=== PATIENT | female | born 1980 | race Caucasian/White ===

== ENCOUNTER 2025-01-06 13:49 | Emergency (ER) | payer OTHER, SELFPAY ==
--- OUTSIDE RECORDS SUMMARY | 2025-01-06 13:51 | XMS_ITS | Encounter Summary ---
Author Organization [facility] Address [address] [place] [address] Phone Care Team Providers Care Oven Dauber Name Role Phone Emery Lucia MD Primary Care Provider + Philomena Howard Primary Care Provider + Sherlyn Siddiqui RN Unavailable Unavailab Stephanie Feliciano NP Primary Care Provider [phone] Lashawn Moore MD Unavailable [phone] Encounter Details Date Type Department Care Team (Late st Contact Info) Description 05/18/2015 Orders Only [facility] CLINCONV Provider, MD Jose [address] [place] [address] Social History Tobacco Use Types Packs/Day Years Used Date Smoking Tobacco: Former Cigarettes Q uit: 05/03/2013 Alcohol Use Standard Drinks/Week Comments No 0 (1 standard drink = 0.6 oz pur e alcohol) Comments Unknown Sex and Gender Information Value Date Recorded Sex Assigned at Not on file 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 us Historical Provider NURSING COMMUNICATION Fin al Result documented in this encounter Visit Diagnoses Not on filedocumented in this encounter Additional Health Concerns Infection Onset Date Last Indicated Resolved Time COVID: Suspected 08/27/2023 08/27/2023 08/27/2023 3:40 AM CDT documented as of this encounter Care Teams Oven Dauber Relationship Specialty Start Date End Date Emery Lucia MD [address] [place] [address] PCP - General 07/03/14 05/17/17 Philomena Howard PA [address] [place] [address] PCP - General 05/18/17 09/02/20 Stephanie Brooks NP [address] [place] [address] PCP - General 09/03/20 Sherlyn Siddiqui, DAVID Registered Nurse Pain Management 05/18/17 Lashawn Moore MD [address] [place], [place] [address] Referring Physician General Surgery 03/05/22 documented as of this encounter
--- OUTSIDE RECORDS SUMMARY | 2025-01-06 13:51 | XMS_ITS | Clinical Summary ---
Author Organization [facility] Address [address] [place] [address] Care Team Providers Care Contract Administrative Assistant Name Role Phone Sherlyn Siddiqui RN Unavailable Unavailab Stephanie Feliciano NP Primary Care Provider + [phone] Lashawn Moore MD Unavailable [phone] Allergies Active Allergy Reactions Criticality Noted Date Comments Naproxen Vomiting Medium Pregabalin Hallucinations Medium 08/11/2017 Bad dreams Medications metoprolol (LOPRESSOR) 50 mg tablet Take 1 tablet (50 mg total) by mouth 2 (two) times a day 8 Active omeprazole (PriLOSEC) 20 mg capsule Take 2 capsules (40 mg total) by mouth every morning 8 Active cetirizine (ZyrTEC) 10 mg tablet Take 1 tablet (10 mg total) by mouth every morning Active psyllium (METAMUCIL) powder Take 2 packets by mouth 2 (two) times a day as needed Active cyclobenzaprine (FLEXERIL) 10 mg tablet Take 1 tablet (10 mg total) by mouth nightly as needed for muscle spasms 12 tablet 9 Active albuterol 2.5 mg /3 mL (0.083 %) nebulizer solution Take by nebulization every 4 (four) hours as needed for shortness of breath Active Lactobac no.41/Bifidobact no.7 (PROBIOTIC-10 ORAL) Take 1 tablet by mouth every morning Active multivitamin capsule Take 1 capsule by mouth 2 (two) times a day Active potassium chloride ER (KLOR-CON) 10 mEq CR tablet Take 1 tablet/capsule (10 mEq total) by mouth 2 (two) times a day Active albuterol HFA (PROVENTIL HFA,VENTOLIN HFA,PROAIR HFA) 90 mcg/actuation inhaler Inhale 2 puffs every 6 (six) hours as needed for wheezing or shortness of breath Active CALCIUM CITRATE ORAL Take 600 mg by mouth 2 (two) times a day Active lactulose 0.67 gram/mL solution as needed (constipation) 3 Active ferrous sulfate 325 mg (65 mg of elemental iron) tablet Take 1 tablet (325 mg total) by mouth daily with breakfast 30 tablet 11 5 026 Active acetaminophen (TYLENOL) 500 mg tabletIndication s:Pain Take 2 tablets (1,000 mg total) by mouth every 6 (six) hours as needed for pain 60 tablet 5 Active polyethylene glycol (MIRALAX) 17 gram/dose bulk powder Take 17 g by mouth daily 510 g 5 Active silver sulfadiazine (SILVADENE, SSD) 1 % cream Apply topically daily To perineum 50 g 5 Active Additional Information Patient not taking.Reported on 10/26/2024 nicotine polacrilex (NICORETTE) 2 mg gum Chew 1 each (2 mg total) as needed for smoking cessation 100 each 3 5 Active Active Problems Problem Noted Date Diagnosed Date 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 Biopsy of posterior fourchette HSIL, AIN 2-3 Exam today with no e/o acetowhite changes or dysplasia at areas of concern, reassurance provided to patient. Discussed RTC in 1 year for surveillance or sooner if new areas of concern develop. Pap today given HSIL on surgical pathology. Plan: - f/u pap - RTC in 1 year or sooner if new symptoms/lesions of concern Dyspareunia in female 10/09/2023 Overview (10/09/2023): - longstanding history of deep dyspareunia - previously referred to PFPT, still contacting providers in area - provided with vaginal icing kit today Tobacco use 10/09/2023 Overview (10/09/2023): - Current smoker, smokes anywhere from 0-3 packs per week - trying to cut down, interested in nicorette gum - discussed importance of smoking cessation in anticipation of and after surgery to promote vaginal cuff healing. Patient agreeable to stopping smoking around time of surgery - rx for nicorette gum sent to patient's pharmacy Abnormal uterine bleeding (AUB) 07/14/2023 Overview (10/09/2023): - longstanding history of AUB, dysmenorrhea - failed multiple treatments: OCPs, DMPA, IUD, ablation - surgical history includes gastric sleeve, CS c/b cystotomy, BTL/ablation, lap tameka - pelvic exam at last visit notable for small, mobile uterus. - pelvic US 08/16/23: ut 8.7 x 6.5 x 4.4 cm with 8 mm submucosal fibroid, normal R ovary, L ovary with 2.5 cm simple cyst ORADS-1 - Labs notable for A1c 5.7 (03/2023), Hgb 14.5 (05/2023) - 05/26/23 Pap NILM/HPV neg - 06/22/23 EMBx weakly proliferative endometrium, benign endocervical polyp - patient desires definitive management with hysterectomy. Favor laparoscopic approach given no history of vaginal deliveries, prior surgical history, and uterine size. - started on provera 10 mg daily at last visit until surgery can be scheduled, not currently controlling symptoms Plan - increase to provera 20 mg daily, new rx sent to patient's pharmacy - plan for total laparoscopic hysterectomy, CO2 laser for genital warts; will send message to providers with CO2 laser privileges to plan case - [place] hysterectomy consents signed today - plan to sign surgical and blood consents day of surgery versus schedule follow up visit Genital warts 07/14/2023 Overview (10/09/2023): - longstanding history of genital warts, s/p excision in 2011 now with recurrence of lesions - 1 cm perineal lesion noted on exam, not continuous with anus - counseled on options for treatment including imiquimod cream, in-office excision/cryotherapy, or intraoperative laser therapy - patient desires management with laser therapy. Plan for treatment at time of hysterectomy Cellulitis 09/01/2021 Assessment & Plan (09/01/2021 11:10 AM CDT): Follow under cat bite Former smoker 09/01/2021 Assessment & Plan (09/01/2021 11:21 AM CDT): Patient was an everyday smoker, who has recently quit. Per patient tomorrow will be 30 days of cessation Patient does not require nicotine patch Cat bite 08/31/2021 Assessment & Plan (09/01/2021 11:11 AM CDT): Pt cat bite on 08/28 Pt came to the ED on 08/30 and was sent home with Augmentin and was instructed to return to the ED if symptoms worsened. --> pt states that her symptoms worsened with increase pain,redness, and swelling. --> on admission WBC was 12.5 -->Pt currently on Unasyn --> today symptoms have improved since the start of the IV abx. Pt states that it is less painful with less swelling. Today WBC improved to 9.5 Type 2 diabetes mellitus, [facility] long-term current use of insulin 08/31/2021 Assessment & Plan (09/01/2021 7:49 AM CDT): Patient home medications metformin --> metformin currently on hold patient placed on sliding scale GERD (gastroesophageal reflux disease) Assessment & Plan (09/01/2021 7:45 AM CDT): Continue Protonix 40 mg Branch retinal vein occlusio n of both eyes with macular edema 01/30/2020 Overview (02/06/2020): s/p sectoral PRP OS, has been LTFU since 2016. Assessment & Plan (02/06/2020 12:02 PM CDT): Presented with new vitreous hemorrhage OS and received DERRELL left eye 01/29. Vision much improved. Vit heme mildly better on exam. Right eye with multifocal areas of NVE and significant inner retinal atrophy. Recommend antiVEGF OD today. Discussed need for PRP OU and possibly PPV OS if heme does not clear. Assessment & Plan (01/30/2020 1:10 PM CDT): s/p sectoral PRP OS, has been LTFU since 2016. New vitreous hemorrhage OS. Inject anti-VEGF left eye. Right eye with multifocal areas of NVE and significant inner retinal atrophy. Discussed antiVEGF oD Dicussed need for PRP OU and possibly PPV OS if heme does not clear Avastin OS today. Risks, benefits, alternatives were discussed with patient including but not limited to infection, bleeding, retinal detachment, damage to eye, loss of vision, loss of eye, need for multiple injections and further procedures, a guarded prognosis for vision and that no guarantees can be made.. Warning signs were reviewed with the patient; if the patient experiences redness or swelling or decreased vision or severe pain, the patient was instructed to return to the clinic immediately or the emergency room. The patient understands these risks and all questions were answered. The patient then elected to proceed OS. yony return for avastin OD and to decide about PPV OS Urinary tract infection in female 10/10/2017 Calculus of gallbladder 06/05/2014 Overview (08/07/2016): Cholelithiasis Exomphalos 06/05/2014 Overview (08/07/2016): Umbilical hernia Hypertension Assessment & Plan (09/01/2021 7:46 AM CDT): Continue lisinopril 40 mg, Lopressor 50 mg b.i.d., Lasix 20 mg daily Hypercholesterolemia Overview (08/31/2021): High cholesterol; Comments: GDS 06/05/2014 - Assessment & Plan (09/01/2021 7:46 AM CDT): Continue Lipitor 10 mg Morbid obesity Assessment & Plan (09/01/2021 7:50 AM CDT): BMI:56.38 - discussed risks of obesity and association with chronic medical problems including HTN, DM, and ESTEPHANIA - advised patient on importance of maintaining a diet and exercise regimen including cardiovascular and weight-bearing exercises Sepsis Assessment & Plan (09/01/2021 11:20 AM CDT): Patient SIRS positive, on admission pulse 108, RR 20, WBC 12.5 with a Lactate of 2.7 -patient received 1000 mL bolus of IV fluids -Patient to continue with Unasyn Blood culture from 08/31/2021 pending 09/01: Normal lactate, WBC count of 9.5 Encounters Date Type Department Care Team Description 11/27/2024 Results Follow-Up [facility] [address] [place] [address] [place] [address] Lesley Luis MD PhD Pap with reflex to High Risk HPV and Genotyping (Cytology Component) 11/10/2024 4:04 PM CDT - 11/10/2024 11:59 PM CDT Hospital Encounter [facility] [address] [place] [address] Condyloma Discharge Disposition: Discharge to home or self care 11/10/2024 12:30 PM CDT Office Visit [facility] [address] [place] [id number] Condyloma (Primary Dx) 10/26/2024 9:15 AM CDT Office Visit [facility] Medicine Surgery [address] [place] [address] Charline Davidson MD AIN III (anal intraepithelial neoplasia III) 10/24/2024 Results Follow-Up [facility] [address] [place] [address] Maria Isabel Styles MD N. gonorrhoeae/C. trachomatis Amplification Vaginal, Trichomonas vaginalis PCR Vaginal, RPR Blood, Additional followed-up results: 3 10/20/2024 Telephone [facility] [address] [place] [address] 3rd Floor [address] [place] [phone] Crys Pinon RN 10/17/2024 3:30 PM CDT Office Visit [facility] [address] [place] [address] Floor [address] [place] [phone] Maria Isabel Styles MD Genital warts (Primary Dx); Routine screening for STI (sexually transmitted infection); AIN III (anal intraepithelial neoplasia III) from Last 3 Months Immunizations Immunization Administration Dates Next Due Tdap 08/30/2021,08/09/2012 Surgical History Surgery Date Site/Laterality Comments CERVICAL FUSION cervical fusion OTHER SURGICAL HISTORY D & C x 4 ABLATION Ablation TONSILLECTOMY Tonsillectomy TUBAL LIGATION tubal ligation SECTION section CHOLECYSTECTOMY Lap Cholecystectomy COLONOSCOPY Medical History Medical History Date Comments Hypercholesterolemia High choles terol; Comments: GDS 06/05/2014 - Hypertension Hypertension Hypertension Diabetes mellitus (HCC) Awareness under anesthesia pt re ports waking up during a neck surgery PONV (postoperative nausea and vomiting) Family History Medical History Relation Name Comments Asthma Brother Asthma; Heart attack Father Myocardial infa rction; Cause of : Myocardial infarction Stroke Maternal Grandmother Stroke; Cerebral aneurysm Mother Cerebral a neurysm; Cause of : Cerebral aneurysm Diabetes Other Diabetes mellit us; Asthma Sister Asthma; Anesthesia problems Neg Hx Glaucoma Neg Hx Macular degeneration Neg Hx Relation Name Status Comments Brother Father Maternal Grandmother Mother Other Sister Social History Tobacco Use Types Packs/Day Years Used Date Smoking Tobacco: Some Days Cigarettes 1.8 27.8 Started: 08/01/1996; Last attempted to quit: 05/23/2024 Smokeless Tobacco: Never Tobacco Cessation:Ready to Q uit: Not Asked; Counseling Given: Not Answered Alcohol Use Standard Drinks/Week Comments No 0 (1 standard drink = 0.6 oz pur e alcohol) AUDIT-C Answer Date Recorded Q1: How often do you have a drink containing alcohol? Never 06/12/2024 Q2: How many drinks containi ng alcohol do you have on a typical day when you are drinking? Patient does not drink Q3: How often do you have si x or more drinks on one occasion? Never 06/12/2024 Hunger Vital Sign Answer Date Recorded Within the past 12 months, y ou worried that your food would run out before you got the money to buy more. Never true 10/18/19 25 Within the past 12 months, t he food you bought just didn't last and you didn't have money to get more. Never true 10/17/2024 Personal Safety Answer Date Recorded Have you ever been in or are you currently in a harmful physical or emotional relationship or is someone making you feel afraid or unsafe? Denies 06/22/2024 Comments No Sex and Gender Information Value Date Recorded Sex Assigned at Not on file Legal Sex Female 3:11 AM TERRITORY SUPERVISOR Gender Identity Not on file Sexual Orientation Not on file Obstetrics History Para Term AB IAB SAB Ectopic Multiple Livin g Live Births 1 Date Outcome GA Total Labor Labor/2nd/3rd Weight Sex Type Anes PTL Libby A1 A5 Name Clin Last Filed Vital Signs Vital Sign Reading Time Taken Comments Blood Pressure 171/96 11/10/2024 12:47 PM CDT Pulse 71 11/10/2024 12:47 PM CDT Temperature 36.1 C (97 F) 10/26/2024 9:03 AM CDT Respiratory Rate 19 06/22/2024 2:20 PM TERRITORY SUPERVISOR Oxygen Saturation 100% 11/10/2024 12:47 PM CDT Inhaled Oxygen Concentration - - Weight 89.4 kg (197 lb) 11/10/2024 12:47 PM CDT Height 165.1 cm (5' 5) 10/26/2024 9:03 AM CDT Body Mass Index 32.78 10/26/2024 9:03 AM CDT Plan of Treatment Health Maintenance Due Date Last Done Comments Albumin Creatinine Ratio, Urine 1980 Colon Cancer Screening-Colonoscopy 1980 Foot Exam 1980 Varicella Vaccines (1 of 2 - 13+ 2-dose series) 09/29/1992 Hepatitis B Screening 09/29/1997 Regular Well Visit/Exam 18-64 09/29/1997 Pneumococcal vaccine <65 (1 of 2 - PCV) 09/29/1998 HPV Vaccines (1 - 3-dose SCD M series) 09/29/2006 Depression Screening 05/18/2018 05/18/2017, 05/18/19 18 Dilated Eye Exam 02/05/2021 02/06/2020, 01/30/2020 Lipid Panel 07/12/2024 07/13/2023, 10/02, 08/22/2021 Breast Cancer Screening-Mammogram 08/05/2024 024, 08/06/2023 Hemoglobin A1C 12/05/2024 06/07/2024, 07/01, 10/23/2022, Additional history exists Influenza Vaccine (#1) 2025 eGFR 06/07/2025 06/07/2024, 07/01, 11/01/2022, Additional history exists DTaP/Tdap/Td Vaccine (3 - Td or Tdap) 08/31/2031 08/30/2021, 08/09/2012 Hepatitis C Screening Completed 10/17/2024 Cervical Cancer Screening Discontinued 11/10/2024 Medical Devices Implanted Type Area Lime Slaker Device Identifier Shelf Expiration Date Model / Serial / Lot Screw Screw Neck Procedures Procedure Name Priority Date/Time Associated Diagnosis Comments VAGINAL THINPREP PROCESSING (MOLECULAR COMPONENT) Routine 11/10/2024 1:39 PM CDT Condyloma PAP WITH REFLEX TO HIGH RISK HPV Routine 11/10/2024 1:19 PM CDT Condyloma HEPATITIS B SURFACE ANTIGEN Routine 10/17/2024 4:40 PM CDT Routine screening for STI (sexually transmitted infection) HEPATITIS C ANTIBODY Routine 10/17/2024 4:40 PM CDT Routine screening for STI (sexually transmitted infection) HIV 1/2 ANTIBODY PLUS P24 ANTIGEN Routine 10/17/2024 4:40 PM CDT Routine screening for STI (sexually transmitted infection) RPR Routine 10/17/2024 4:40 PM CDT Routine screening for STI (sexually transmitted infection) TRICHOMONAS VAGINALIS PCR Routine 10/17/2024 4:17 PM CDT Routine screening for STI (sexually transmitted infection) N. GONORRHOEAE/C. TRACHOMATIS AMPLIFICATION Routine 10/17/2024 4:17 PM CDT Routine screening for STI (sexually transmitted infection) EGFR Routine 06/07/2024 2:42 PM TERRITORY SUPERVISOR Preoperative testing POCT HEMOGLOBIN A1C Routine 06/07/2024 1 :27 PM TERRITORY SUPERVISOR LIPID PANEL Routine 07/13/2023 2:33 PM CDT from Last 3 Months or Most Recently Relevant to Health Maintenance Results * Vaginal ThinPrep processing (Molecular Component) (11/10/2024 1:39 PM CDT) Vaginal ThinPrep processing (Molecular component) Specimen received for processing. [facility] Vaginal 11/10/2024 1:39 PM CDT 11/14/2024 9:26 AM CDT us Juani Ta MD LAB BODY FLUIDS AND STOO LS ORDERABLES Final Result [facility] [place] [address] [facility] * Pap with reflex to High Risk HPV and Genotyping (Cytology Component) (11/10/2024 1:19 PM CDT) Thin prep (Pap test) 11/10/2024 1:19 PM CDT 11/13/2024 4:04 PM CDT Narrative PATHOLOGY [facility] - 11/20/2024 2:02 PM CDT EPIC results best viewed via link to PDF [facility] [place] [address] Note to Patients: This report may contain a detailed description of human tissue sent by a health care provider to the laboratory for pathologic evaluation. The content of this report is essential for diagnosis and may provide important critical findings. This information may be unfamiliar to patients to review without a medical professional present. It is advised that the patient review this report in the presence of a health care provider who can answer questions and explain the details. CYTOPATHOLOGY REPORT FINAL Patient Name: KAT ROACH Gender: F : 1980 (Age: 44) Address: [address] [place], [place] [id number] [facility] #: [id number] Service: UNKNOWN Location: Patient Type: [facility] SPECIMEN Taken: 11/10/2024 Received: 11/13/2024 Accessioned: 11/13/2024 Reported: 11/20/2024 Physician(s): Juani Ta M.D. FINAL INTERPRETATION SOURCE OF SPECIMEN Liquid based Thin Prep pap with Reflex HPV: STATEMENT OF ADEQUACY - Satisfactory for evaluation - Endocervical cells/transformation zone sample present GENERAL CATEGORIZATION: - Negative for squamous intraepithelial lesion or malignancy INTERPRETATION: - Shift in tani suggestive of bacterial vaginosis ml/11/20/2024 14:02 Daniella Clifton MS, CT (ASCP) Report Electronically Reviewed and Signed Out By Daniella Clifton MS, CT (ASCP) 11/20/2024 14:02:57 Cervicovaginal Cytology (Pap Test) Disclaimer: The Pap test is a screening test used to detect cervical cancer and its precursors; it is not a diagnostic procedure. False negative and false positive results do occur. Pap test results should be interpreted in the context of pertinent clinical information and biopsy results as indicated. [facility] Clinical Laboratory Improvement Amendments (CLIA) mandate that cytologic and histologic results be correlated for laboratory quality assurance coordinator & improvement standards. FOR ALL HIGH-GRADE CASES we request submission of follow-up histological material and/or reports that have not been previously provided so that we may fulfill said required standards. Gross Description A. Liquid based Thin Prep pap with Reflex HPV: Vaginal - Screening ThinPrep Clinical Diagnosis and History Last Menstrual Period: unknown The patient is a 44 year old female with history of VAIN3/AIN3. Report Images and scanned documents, if included only viewable in PDF version The performance characteristics of some immunohistochemical stains, in-situ hybridization and fluorescence in-situ hybridization tests and immunophenotyping by flow cytometry cited in this report (if any) were determined by the Surgical Pathology Department at [facility] as part of an ongoing quality assurance advisor program and in compliance with federally mandated regulations drawn from the Clinical Laboratory Improvement Act of 1988 (CLIA '88). Some of these tests rely on the use of analyte specific reagents and are subject to specific labeling requirements by the US Food and Drug Administration. Such diagnostic tests may only be performed in a facility that is certified by the Department of Health and Human Services as a high complexity laboratory under CLIA '88. The FDA has determined that such clearance or approval is not necessary. This test is used for clinical purposes. It should not be regarded as investigational or for research. Nevertheless, federal rules concerning the medical use of analyte specific reagents require that the following disclaimer be attached to the report: This test was developed and its performance characteristics determined by the Surgical Pathology Department of [facility]. It has not been cleared or approved by the U. S. Food and Drug Administration. Juani Ta MD LAB CYTOLOGY ORDERABLES Final Result PATHOLOGY [facility] 3rd Floor [place], [place] [phone] * HIV 1/2 Antibody plus p24 Antigen Blood (10/17/2024 4:40 PM CDT) HIV 1/2 ab + p24 ag Nonreactive Nonreactive Comment:Nonreactive for HIV- 1 antigen and HIV-1/HIV-2 antibodies. No laboratory evidence of HIV infection. If acute HIV infection is suspected, consider testing for HIV-1 RNA. Current interpretive data was last revised on 22. Blood 10/17/2024 4:40 PM CDT 10/17/2024 6:58 PM CDT Maria Isabel Styles MD LAB MICROBIOLOGY - GENERAL ORDERABLES Final Result [facility] [place] [address] * Hepatitis C antibody Blood (10/17/2024 4:40 PM CDT) Pathologist [facility] Hep C Ab Nonreactive Nonreactive Comment:Antibodies to HCV no t detected. Does NOT exclude the possibility of recent exposure to HCV. Current interpretive data was last revised on 22 Blood 10/17/2024 4:40 PM CDT 10/17/2024 6:58 PM CDT Maria Isabel Styles MD LAB MICROBIOLOGY - GENERAL ORDERABLES Final Result [facility] [place] [address] * RPR Blood (10/17/2024 4:40 PM CDT) [facility] RPR Nonreactive Nonreactive Blood 10/17/2024 4:40 PM CDT 10/17/2024 6:58 PM CDT Maria Isabel Styles MD LAB MICROBIOLOGY - GENERAL ORDERABLES Final Result Performing Organization Address City/[facility]/ZIP Co de Phone Number [facility] [place] [address] * Hepatitis B Surface Antigen Blood (10/17/2024 4:40 PM CDT) [facility] HepBsAg Nonreactive Nonreactive Blood 10/17/2024 4:40 PM CDT 10/17/2024 6:58 PM CDT Maria Isabel Styles MD LAB MICROBIOLOGY - GENERAL ORDERABLES Final Result Performing Organization Address City/[facility]/ZIP Co de Phone Number [facility] [place] [address] * N. gonorrhoeae/C. trachomatis Amplification Vaginal (10/17/2024 4:17 PM CDT) [facility] C. trachomatis Not Detected [facility] N. gonorrhoeae Not Detected [facility] Comment: Interpretive Data This assay detects Chlamydia trachomatis and Neisseria gonorrhoeae by nucleic acid amplification testing (NAAT). This assay has been cleared by the [place] Food and Drug administration. The performance characteristics of this test have been verified by the [facility] Molecular Infectious Disease laboratory. The performance characteristics of this test have not been evaluated in individuals less than 14 years of age. Current Interpretive Data was last revised on 2023. Vaginal (None) 10/17/2024 4: 17 PM CDT 10/17/2024 7:14 PM CDT Maria Isabel Styles MD LAB MICROBIOLOGY - GENERAL ORDERABLES Final Result Performing Organization Address [facility] de Phone Number [facility] [place] [address] [facility] * Trichomonas vaginalis PCR Vaginal (10/17/2024 4:17 PM CDT) [facility] Trichomonas DNA Not Detected [facility] Comment: Interpretive Data This assay detects Trichomonas vaginalis by nucleic acid amplification testing (NAAT). This assay has been cleared by the [place] Food and Drug administration. The performance characteristics of this test have been verified by the [facility] Molecular Infectious Disease laboratory. The performance of this test has not been evaluated in individuals less than 18 years of age. Current Interpretive Data was last revised on 2023. Vaginal 10/17/2024 4:17 PM CDT 10/17/2024 7:14 PM CDT Maria Isabel Styles MD LAB MICROBIOLOGY - GENERAL ORDERABLES Final Result Performing Organization Address [facility] [place] [address] [facility] * eGFR (06/07/2024 2:42 PM TERRITORY SUPERVISOR) Pathologist [facility] eGFR >90 >=60 mL/min/1. 73 m2 Comment: Interpretive Data Reference Interval Normal >/= 90 mL/min/1.73m2 Mildly decreased* 60 - 89 mL/min/1.73m2 Mildly to moderately decreased 45 - 59 mL/min/1.73m2 Moderately to severely decreased 30 - 44 mL/min/1.73m2 Severely decreased 15 - 29 mL/min/1.73m2 Kidney Failure < 15 mL/min/1.73m2 *Relative to young adult level Estimated glomerular filtration rate is determined by the 2020 CKD-EPI equation recommended by the National Kidney Foundation (A Unifying Approach to GFR Estimation: Recommendations of the NKF-ASK Task Force on Reassessing the Inclusion of Race in Diagnosing Kidney Disease, JASN 2020). The CKD-EPI equation should not be used for patients with unstable renal function and has not been validated in children and those over 70. Current interpretive data was last reviewed 2021. Blood 06/07/2024 2:42 PM TERRITORY SUPERVISOR 06/07/2024 3:46 PM TERRITORY SUPERVISOR us Debora Niño NP LAB BLOOD ORDERABLES Final Resul t Performing Organization Address City/[facility] Co de Phone Number [facility] Department [place] [address] * POCT hemoglobin A1c (06/07/2024 1:27 PM TERRITORY SUPERVISOR) Hgb A1C, POC 5.2 4.0 - 5.6 % Est Average Gluc POC 103 mg/dL [facility] Comment: The ADA recommends reporting an estimated Average Glucose (eAG) with all Hemoglobin A1c results using the equation derived from a study of 507 normal and diabetic adults. Minority populations were underrepresented and children were not included. (Diabetes Care 31:8320-6733, 2008). The eAG is not equivalent to a fasting glucose. Blood 06/07/2024 1:27 PM TERRITORY SUPERVISOR 06/07/2024 1:27 PM TERRITORY SUPERVISOR Maria Isabel Styles MD POINT OF CARE TEST ORDERABLES Final Result Performing Organization Address [facility]/ZIP Co de Phone Number [facility] Department [place] [address] * Lipid panel (07/13/2023 2:33 PM CDT) Cholesterol 188 30 - 199 mg/dL Comment: Interpretive Data Ages < or = 19 years Acceptable: <170 mg/dL Borderline high: 170-199 mg/dL High: >or= 200 mg/dL Ages > or = 20 years Desirable: <200 mg/dL Borderline high: 200-239 mg/dL High: >or= 240 mg/dL Literature References: 1. Expert Panel on Integrated Guidelines for Cardiovascular Health and Risk Reduction in Children and Adolescents. Pediatrics 2011;128:S213 2. NCEP Expert Panel. Circulation 2004;110:227 Current Interpretive Data was last revised on 2017. Triglycerides 87 <=149 mg/dL [facility] YOU[facility] ([place]) Comment: Interpretive Data Ages < or = 9 years Acceptable: <75 mg/dL Borderline high: 75-99 mg/dL High: >or= 100 mg/dL Ages 10 to 20 years Acceptable: <90 mg/dL Borderline high: 90-129 mg/dL High: >or= 130 mg/dL Ages > or = 20 years Desirable: <150 mg/dL Borderline high: 150-199 mg/dL High: 200-499 mg/dL Very high: >or= 499 mg/dL Literature References: 1. Expert Panel on Integrated Guidelines for Cardiovascular Health and Risk Reduction in Children and Adolescents. Pediatrics 2011;128:S213 2. NCEP Expert Panel. Circulation 2004;110:227 Current Interpretive Data was last revised on 2017. HDL 44 >=40 mg/dL NENO John ([place]) Comment: Interpretive Data Ages < or = 19 years Acceptable: >45 mg/dL Borderline low: 40-45 mg/dL Low: <40 mg/dL Ages > or = 20 years Desirable: >or= 60 mg/dL Low: <40 mg/dL Literature References: 1. Expert Panel on Integrated Guidelines for Cardiovascular Health and Risk Reduction in Children and Adolescents. Pediatrics 2011;128:S213 2. NCEP Expert Panel. Circulation 2004;110:227 Current Interpretive Data was last revised on 2017. LDL, calculated 127 <=129 mg/dL [facility] ([place]) Comment: Interpretive Data Ages < or = 19 years Acceptable: <110 mg/dL Borderline high: 110-129 mg/dL High: >or= 130 mg/dL Ages > or = 20 years Optimal: <100 mg/dL Near optimal: 100-129 mg/dL Borderline high: 130-159 mg/dL High: >160 mg/dL Literature References: 1. Expert Panel on Integrated Guidelines for Cardiovascular Health and Risk Reduction in Children and Adolescents. Pediatrics 2011;128:S213 2. NCEP Expert Panel. Circulation 2004;110:227 Current Interpretive Data was last revised on 2017. Non-HDL Cholesterol 144 mg/dL [facility] ([place]) Comment: Interpretive Data Ages < or = 19 years Acceptable: <120 mg/dL Borderline high: 120-144 mg/dL High: >145 mg/dL Ages > or = 20 years When triglycerides are >200 mg/dL, Non-HDL cholesterol is a secondary target of therapy with treatment goals that are 30 mg/dL greater than the LDL cholesterol target. Literature References: 1. Expert Panel on Integrated Guidelines for Cardiovascular Health and Risk Reduction in Children and Adolescents. Pediatrics 2011;128:S213 2. NCEP Expert Panel. Circulation 2004;110:227 Current Interpretive Data was last revised on 2017. Chol/HDL ratio 4 SONYA YOUNG ([place]) Blood 07/13/2023 2:33 PM CDT 07/13/2023 2:39 PM CDT us Valeria Harris RESIDENT INTERN LAB BLOOD ORDERABLES F inal Result [facility] YOU[facility] ([place]) [facility] Department [place] [address] from Last 3 Months or Most Recently Relevant to Health Maintenance [place] [place] [address] [facility] Advance Directives For more information, please contact: [phone] * Full Code (Latest Code Status on File) Date Activated Date Inactivated Comments 08/31/2021 6:08 PM 09/02/2021 4:44 PM Care Teams Contract Administrative Assistant Relationship Specialty Start Date End Date Brooks, Stephanie Anderson NP [address] [place] [id number] PCP - General 09/03/20 Sherlyn Siddiqui, RN Registered Nurse Pain Management 05/18/17 Lashawn Moore MD [address] [place] [address] Referring Physician General Surgery 03/05/22
--- OUTSIDE RECORDS SUMMARY | 2025-01-06 13:51 | XMS_ITS | Clinical Summary ---
Author Organization [facility] Address [address] [place] [address] Care Team Providers Care Epic Anesthesia Analyst Name Role Phone Stephanie Brooks SHELDONSeleneSLEEVE TURNER Primary Care Provider [phone] Source Comments [facility],non-owned Affiliates and Associated Physician Practices is amultiple site organization consisting of ambulatory clinics and hospital sitesin [place], [place], [place] and [place]. This disclosure is being madepursuant to the Care Everywhere program and may not contain all information available regarding this patient. Last updated 18.[facility] Allergies Active Allergy Reactions Criticality Noted Date Comments Naproxen Dizziness,Vomiting Medium 08/11/2017 Pregabalin Psychiatric Medium 08/11/2017 Bad dreams Bad dreams Medications * Be aware that medications may not be up to date on this document. Alwaysverify current medications with the patient. albuterol HFA (PROVENTIL;VENT PHILLIP;PROAIR) 108 (90 Base) MCG/ACT inhaler Inhale 2 (two) puffs by mouth every 6 hours as needed 1 Active cyclobenzaprine (FLEXERIL) 10 MG tablet Take 1 (one) tablet by mouth at bedtime 1 Active metoprolol tartrate (LOPRESSOR) 50 MG tablet Take 1 (one) tablet by mouth 2 times daily 1 Active cetirizine (ZYRTEC) 10 MG tablet Take 1 (one) tablet by mouth once daily Active Multiple Vitamins-Minera ls (CENTRUM SILVER PO) Take 1 tablet by mouth 2 times daily Active albuterol (Proventil;Vent phillip) (2.5 MG/3ML) 0.083% nebulizer solution 2.5 (two and one-half) mg 4 times daily as needed 2 Active Probiotic Product ([employer] capsuleIndicati ons:Bariatric surgery status Take 1 (one) capsule by mouth once daily 30 capsule 3 2 Active divalproex sprinkle (Depakote Sprinkle) 125 MG capsuleIndicati ons:Migraine Take 2 (two) capsules by mouth 2 times daily 1/2 dose Reasons: Migraine Headache Active Blood Pressure Monitor KIT Use 1 kit 2 times daily Check your blood pressure twice a day before taking your blood pressure medication 1 kit 2 Active Additional Information Patient not taking.Reported on 01/04/2024 docusate sodium (Colace) 100 MG capsuleIndicati ons:Bariatric surgery status TAKE 1 CAPSULE BY MOUTH TWICE A DAY 30 capsule 3 Active CALCIUM CITRATE 600 mg TABS tablet Take 600 (six hundred) mg by mouth 2 times daily Active lactulose (Chronulac) 10 GM/15ML solution 3 Active Other Biotin and collagen drops Active medroxyPROGESTE Prateek (Provera) 10 MG tablet Take 4 (four) tablets by mouth once daily 4 Active Potassium 99 MG tablet Take 1 (one) tablet by mouth at bedtime Active nicotine polacrilex (Nicorette) 2 MG gum 1 (one) Each as needed 4 Active Acetaminophen (MIDOL PO) Take by mouth as needed Active omeprazole (PriLOSEC) 40 MG capsule Take 1 (one) capsule by mouth daily before breakfast 30 capsule 5 5 Active Active Problems Problem Noted Date Diagnosed Date Morbid obesity 03/09/2022 Family History Medical History Relation Name Comments Heart Failure Brother Diabetes; unknown type Father Heart Failure Father Blood Clots Maternal Grandfather CVA Maternal Grandfather Diabetes; unknown type Maternal Grandfather Blood Clots Maternal Grandmother CVA Maternal Grandmother Diabetes; unknown type Maternal Grandmother Blood Clots Mother Diabetes; unknown type Mother Blood Clots Paternal Grandmother Diabetes; unknown type Paternal Grandmother Heart Failure Paternal Grandmother Blood Clots Sister Cancer Sister Diabetes; unknown type Sister Relation Name Status Comments Brother Father Maternal Grandfather Maternal Grandmother Mother Paternal Grandmother Sister Social History Tobacco Use Types Packs/Day Years Used Date Smoking Tobacco: Former Cigarettes 2 025 - 09/21/2023 Smokeless Tobacco: Never Tobacco Cessation:Counseling Given: Not Answered Comments:Using nicotine gum- per pt 11/11/2023 Quit 05/11/24 Alcohol Use Standard Drinks/Week Comments Never 0 (1 standard drink = 0.6 oz pur e alcohol) PHQ-2 Answer Date Recorded Patient Health Questionnaire-2 Score 0 05/23/2024 Comments No Sex and Gender Information Value Date Recorded Sex Assigned at Not on file Legal Sex Female 6:17 AM RECONCILEMENT CLERK Gender Identity Not on file Sexual Orientation Not on file Last Filed Vital Signs Vital Sign Reading Time Taken Comments Blood Pressure 132/84 05/23/2024 2:00 PM RECONCILEMENT CLERK Pulse 71 05/23/2024 2:00 PM RECONCILEMENT CLERK Temperature 36.5 C (97.7 F) 05/23/2024 2:00 PM RECONCILEMENT CLERK Respiratory Rate 16 05/23/2024 2:00 PM RECONCILEMENT CLERK Oxygen Saturation 98% 05/23/2024 2:00 PM RECONCILEMENT CLERK Inhaled Oxygen Concentration - - Weight 98 kg (216 lb) 05/23/2024 2:00 PM RECONCILEMENT CLERK Height 164.6 cm (5' 4.8) 05/23/2024 2:00 PM RECONCILEMENT CLERK Body Mass Index 36.16 05/23/2024 2:00 PM RECONCILEMENT CLERK Plan of Treatment Upcoming Encounters Date Type Department Care Team (Late st Contact Info) Description 03/20/2025 1:30 PM RECONCILEMENT CLERK Clinical Support [facility] [address] [place] [phone] 03/20/2025 2:00 PM RECONCILEMENT CLERK Office Visit [facility] [address] [place] [phone] Pema Gallego APRN-SLEEVE TURNER [address] [place] [address] Health Maintenance Due Date Last Done Comments COLOGUARD (AGES 45-75) - COLON CA SCREENING 1979 COLON MONITORING 1979 COLONOSCOPY - COLON CA SCREENING 1979 CT COLONOGRAPHY - COLON CA SCREENING 1979 Colorectal Cancer Screening 1979 FIT - COLON CA SCREENING 1979 FLEX SIG - COLON CA SCREENING 1979 HIV SCREENING 09/29/1994 DTAP/TDAP/TD VACCINES (1 - Tdap) 09/29/1998 HEPATITIS B VACCINE (1 of 3 - 19+ 3-dose series) 09/29/1998 PAP SMEAR 09/29/2000 HPV VACCINE (1 - 3-dose SCDM series) 09/29/2006 COVID-19 VACCINE ( season) 2025 INFLUENZA VACCINE (#1) 2025 MAMMOGRAM 08/12/2025 08/13/2023, 040 09/2023, 08/06/2023 LIPID TESTING 08/22/2026 08/22/2021 SCREENING FOR DIABETES 11/04/2026 , 03/10/2022, 03/10/2022, Additional history exists ZOSTER VACCINE (1 of 2) 09/29/2029 HEPATITIS C SCREENING Completed 02/17/2021 DEPRESSION SCREENING Completed 05/23/2024, 10/01/2023, 09/22/2021 HIB VACCINE Aged Out No longer eligi ble based on patient's age to complete this topic MENINGOCOCCAL (Group B) VACCINE SHARED DECISION-MAKING Aged Out No longer eligible based on patient's age to complete this topic MENINGOCOCCAL GROUPS A/C/Y/W VACCINE Aged Out No longer eligible based on patient's age to complete this topic PNEUMOCOCCAL VACCINE Aged Out No long er eligible based on patient's age to complete this topic Medical Devices Implanted Type Area Wellness Educator Device Identifier Shelf Expiration Date Model / Serial / Lot Kit Tissue Clsr Duo Tssl 1 Prefl Syr - [id number] Implanted:Qty : 1 on 03/09/2022 by Lashawn Moore MD at [facility] N/A: [employer] 08/31/2023 [id number] / [id number] / [id number] Procedures Procedure Name Priority Date/Time Associated Diagnosis Comments GLUCOSE - POINT OF CARE Routine 11/05/2023 12:02 PM CDT LIPID PROFILE Routine 08/22/2021 2:25 PM CDT Pre-op exam Morbid obesity HEPATITIS C ANTIBODY Routine 02/17/2021 4:20 PM CDT Arthralgia, unspecified joint High risk medication use Long-term use of immunosuppressant medication from Last 3 Months or Most Recently Relevant to Health Maintenance Results * GLUCOSE - POINT OF CARE (11/05/2023 12:02 PM CDT) Glucose WB/POC 95 70 - 125 mg/dL 11/05/2023 12:02 PM CDT [facility] Specimen Type Cap Fingerstick 2023 12:02 PM CDT [facility] Blood BLOOD SPECIMEN / Unknown 11/05/2023 12:02 PM CDT 11/05/2023 12:02 PM CDT Lashawn Moore MD LAB - POINT OF CARE INÉS CALIX Final Result [facility] [address] * (ABNORMAL) LIPID PROFILE (08/22/2021 2:25 PM CDT) Cholesterol 197 <200 mg/dL 08/22/2021 3:32 PM CDT [facility] Triglycerides 243(H) <150 mg/dL 08/22/2021 3:32 PM CDT [facility] HDL Cholesterol 46 >40 mg/dL 2 3:32 PM CDT [facility] Chol HDL Ratio 4.3 1.0 - 6.0 08/22/2021 3:32 PM CDT [facility] LDL Calculated 102 65 - 130 mg/dL 08/22/2021 3:32 PM CDT [facility] VLDL Calculated 49(H) <=30 mg/dL 2 3:32 PM CDT [facility] Blood BLOOD SPECIMEN / Unknown Lab Venipuncture / Unknown 08/22/2021 2:25 PM CDT 08/22/2021 3:01 PM CDT Narrative [facility] - 08/22/2021 3:32 PM CDT Lipid Profile Comment: CHOLESTEROL LEVEL..................CLINICAL INTERPRETATION LESS THAN 200 MG/DL..............................DESIRABLE 200-239 MG/DL..............................BORDERLINE HIGH GREATER THAN 240 MG/DL................................HIGH LDL-CHOLESTEROL LEVEL..............CLINICAL INTERPRETATION LESS THAN 100 MG/DL................................OPTIMAL 100-129 MG/DL.................................NEAR OPTIMAL GREATER THAN 160 MG/DL...........................HIGH RISK HDL RISK LEVEL GREATER THEN 60 MG/DL............................DECREASED 40-60 MG/DL........................................AVERAGE LESS THAN 40 MG/DL...............................INCREASED TRIGLYCERIDE LEVEL..................CLINICAL INTERPRETATION LESS THAN 150 MG/DL...............................DESIRABLE 150-199 MG/DL...............................BORDERLINE HIGH 200-499 MG/DL..........................................HIGH GREATER THAN 500..................................VERY HIGH THE NATIONAL CHOLESTEROL EDUCATION PROGRAM HAS SET THE ABOVE GUIDELINES (REFERANCE VALUES) FOR CHOLESTEROL AND HDL. RISK ASSOCIATED WITH CHOLESTEROL/HDL RATIOS RISK....................MALE RATIO.............FEMALE RATIO 1/2 AVERAGE.................<3.4.......................<3.3 LOW RISK.................... 4.0 ...................... 3.8 AVERAGE..................... 5.0 ...................... 4.5 2X AVERAGE.................. 9.5 ...................... 7.0 3X AVERAGE...................>23........................>11 us Lashawn Moore MD LAB - CHEMISTRY ORDERABL ES Final Result [facility] [address] [place], [place] [id number] [place] [address] * HEPATITIS C ANTIBODY (02/17/2021 4:20 PM CDT) Hepatitis C Antibody Non-react page Non-reac tive 02/17/2021 5:46 PM CDT [facility] Comment:Hepatitis C Antibody screen indicates no serologic evidence of past or current infection with Hepatitis C Virus. Patients with unexplained liver disease who are immunocompromised or suspected of having acute Hepatitis C infection may benefit from Nucleic Acid Test (CLAIRE) for Hepatitis C Viral RNA to confirm Hepatitis C status. Blood BLOOD SPECIMEN / Unknown Lab Venipuncture / Unknown 02/17/2021 4:20 PM CDT 02/17/2021 4:37 PM CDT us Nimco Montgomery MD LAB - CHEMISTRY ORDERAB LES Final Result [facility] [address] [place] [address], [facility] [phone] from Last 3 Months or Most Recently Relevant to Health Maintenance [place] [address] [address] [place] [address] [place] [address] [facility] Advance Directives * Full Code (Latest Code Status on File) Date Activated Date Inactivated Comments 03/09/2022 11:08 AM 03/10/2022 4:35 PM Care Teams Epic Anesthesia Analyst Relationship Specialty Start Date End Date Stephanie Brooks APRN-TATYANA [address] [place] [address] PCP - General Nurse Practitioner Family 07/31/21
--- OUTSIDE RECORDS SUMMARY | 2025-01-06 13:51 | XMS_ITS | Clinical Summary ---
Author Organization [facility] Address [address] [place] [address] Phone Care Team Providers Care Ball Racker Name Role Phone Philomena Howard Primary Care Provider [phone] Allergies Active Allergy Reactions Criticality Noted Date Comments Naproxen Vomiting Medium 08/11/2017 Pregabalin Hallucinations 08/11/2017 Bad dreams Medications Probiotic Product (PROBIOTIC-10 PO) Take 1 Tab by mouth daily. Active hydroCHLOROthia zide 25 MG Tablet Take 25 mg by mouth daily. Active simvastatin (ZOCOR) 20 MG Tablet Take 20 mg by mouth every evening. Active lisinopril (PRINIVIL, ZESTRIL) 40 MG Tablet Take 40 mg by mouth daily. Active metoprolol tartrate (LOPRESSOR) 50 MG Tablet Take 50 mg by mouth 2 times daily. Active omeprazole (PRILOSEC) 20 MG CAPSULE DELAYED RELEASE Take 20 mg by mouth daily. Active divalproex (DEPAKOTE) 500 MG Tablet Delayed Response Take 500 mg by mouth 2 times daily. Active cetirizine (ZYRTEC) 10 MG Tablet Take 10 mg by mouth daily. Active Mometasone Furo-Formoterol Fum (DULERA) 100-5 MCG/ACT Aerosol take 2 Puffs by inhalation every 12 hours. Active ibuprofen (MOTRIN) 800 MG Tablet Take 800 mg by mouth every 8 hours as needed. Active Psyllium (SM FIBER POWDER PO) Take 2 Tabs by mouth 2 times daily. Active montelukast (SINGULAIR) 10 MG Tablet 8 Active VENTOLIN HFA 108 (90 Base) MCG/ACT Aerosol Solution 05/15/201 8 Active Active Problems Problem Noted Date Diagnosed Date Diverticulitis 09/15/2017 Morbid obesity with BMI of 50.0-59.9, adult 08/31 Tobacco abuse 09/15/2017 Family History Medical History Relation Name Comments Cancer Brother colon cancer Diabetes Father Heart Attack Father Hypertension Father Cancer Maternal Aunt ovarin and cer vical cancer Aneurysm Mother Diabetes Mother Hypertension Mother Cancer Sister ovarian and cer vical Relation Name Status Comments Brother Alive Father Maternal Aunt Mother Sister Alive Social History Tobacco Use Types Packs/Day Years Used Date Smoking Tobacco: Every Day Cigarettes 1 30 Smokeless Tobacco: Never Tobacco Cessation:Ready to Q uit: No; Counseling Given: Yes Alcohol Use Standard Drinks/Week Comments No 0 (1 standard drink = 0.6 oz pur e alcohol) Comments No Sex and Gender Information Value Date Recorded Sex Assigned at Not on file Legal Sex Female 12:21 AM CDT Gender Identity Not on file Sexual Orientation Not on file Last Filed Vital Signs Vital Sign Reading Time Taken Comments Blood Pressure 120/80 02/17/2019 2:53 PM CDT Pulse 81 02/17/2019 2:53 PM CDT Temperature 37.1 C (98.8 F) 09/15/2017 3:12 PM CDT Respiratory Rate 17 09/15/2017 3:12 PM CDT Oxygen Saturation 98% 02/17/2019 2:53 PM CDT Inhaled Oxygen Concentration - - Weight 138.3 kg (305 lb) 02/17/2019 2:53 PM CDT Height 165.1 cm (5' 5) 02/17/2019 2:53 PM CDT Body Mass Index 50.75 02/17/2019 2:53 PM CDT Plan of Treatment Health Maintenance Due Date Last Done Comments Hepatitis C Virus (HCV) Screening 1980 Hepatitis B Immunization (1 of 3 - 19+ 3-dose series) 09/29/1998 Pap Smear 09/29/2000 Human Papillomavirus (HPV) Immunization (1 - 3-dose SCDM series) 09/29/2006 Cervical Cancer Screening (CCS) 09/29/2009 HPV/Cotest 09/29/2009 Mammogram 08/05/2024 08/06/2023 Cologuard 09/29/2024 Immunochemical Fecal Occult Blood 09/29/2024 Influenza Immunization (#1) 2025 SARS-COV-2 Immunization ( season) 2025 Colonoscopy 08/31/2027 08/30/2017 Colorectal Cancer Screening 08/31/2027 Respiratory Syncytial Virus (RSV) Immunization (Adult) (1 - 1-dose 75+ series) 09/29/2054 DTaP/Tdap/Td Immunization Discontinued 2021, 08/09/2012 TdaP Immunization Completed 08/30/2021, 08/09/2012 Discussion re Starting/Frequency of Mammograms Completed 08/06/2023 Meningococcal Immunization (ACWY) Aged Out No longer eligible based on patient's age to complete this topic Pneumococcal Immunization Combined Aged Out No longer eligible based on patient's age to complete this topic Rotavirus Immunization Aged Out No lo nger eligible based on patient's age to complete this topic Procedures Procedure Name Priority Date/Time Associated Diagnosis Comments COLLETTE SCREENING BILATERAL DIGITAL W CAD W ANCA Routine 08/06/2023 4:30 PM CDT Visit for screening mammogram from Last 3 Months or Most Recently Relevant to Health Maintenance Results * COLLETTE SCREENING BILATERAL DIGITAL W CAD W ANCA (08/06/2023 4:30 PM CDT) Anatomical Region Laterality Modality breast Bilateral Mammography 08/06/2023 4:13 PM CDT Narrative 08/13/2023 11:31 AM CDT - COLLETTE SCREENING BILATERAL DIGITAL W CAD W ANCA BILATERAL DIGITAL SCREENING MAMMOGRAM 3D/2D WITH CAD WITH MEDIOLATERAL OBLIQUE CRANIOCAUDAL: 08/06/2023 The study was acquired using digital technology and interpreted from soft copy. Current study was also evaluated with ICAD version 7.2. 2D digital mammographic views, as well as 3D digital tomosynthesis were performed in the CC and MLO projections. CLINICAL: Baseline screening. Patient has no complaints. No personal history of breast cancer. Sister with premenopausal ovarian cancer. Maternal aunt had ovarian cancer. Three maternal great aunts had breast cancer. COMPARISONS: No prior exams were available for comparison. BREAST TISSUE:There are scattered fibroglandular densities in both breasts. FINDINGS: No significant masses, calcifications, or other findings are seen in either breast. IMPRESSION: BI-RAD 1 NEGATIVE There is no mammographic evidence of malignancy. A 1 year screening mammogram is recommended. A letter will be sent to the patient with these results. The patient will be entered into a reminder system with a target due date of 1 year for her next screening exam. Electronically signed by: Sandra caballero/penrad:08/09/2023 16:25:49 Contact Center Manager(s): CAROLINA AngelaR)(M), [facility] letter sent: Normal Exam Reading location: [facility] BI-RADS: 1 Negative Procedure Note Sandra Cormier MD - 08/13/2023 - COLLETTE SCREENING BILATERAL DIGITAL W CAD W ANCA BILATERAL DIGITAL SCREENING MAMMOGRAM 3D/2D WITH CAD WITH MEDIOLATERAL OBLIQUE CRANIOCAUDAL: 08/06/2023 The study was acquired using digital technology and interpreted from soft copy. Current study was also evaluated with ICAD version 7.2. 2D digital mammographic views, as well as 3D digital tomosynthesis were performed in the CC and MLO projections. CLINICAL: Baseline screening. Patient has no complaints. No personal history of breast cancer. Sister with premenopausal ovarian cancer. Maternal aunt had ovarian cancer. Three maternal great aunts had breast cancer. COMPARISONS: No prior exams were available for comparison. BREAST TISSUE:There are scattered fibroglandular densities in both breasts. FINDINGS: No significant masses, calcifications, or other findings are seen in either breast. IMPRESSION: BI-RAD 1 NEGATIVE There is no mammographic evidence of malignancy. A 1 year screening mammogram is recommended. A letter will be sent to the patient with these results. The patient will be entered into a reminder system with a target due date of 1 year for her next screening exam. Electronically signed by: Sandra caballero/penrad:08/09/2023 16:25:49 Contact Center Manager(s): RT Julio César(R)(M), [facility] letter sent: Normal Exam Reading location: [facility] BI-RADS: 1 Negative April Acharya V, LEAD MOBILE DEVELOPER, SUPERINTENDENT MEASUREMENT IMG MAMMO ORDERABLES Final Result from Last 3 Months or Most Recently Relevant to Health Maintenance Insurance MEDICAID BROCK Care Teams Ball Racker Relationship Specialty Start Date End Date Philomena Howard PA [address] [address] PCP - General Adult Medicine 06/09/17
--- OUTSIDE RECORDS SUMMARY | 2025-01-06 13:51 | XMS_ITS | Encounter Summary ---
Author Organization 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 Phone Sherlyn Siddiqui RN Unavailable Unavailab Stephanie Feliciano NP Primary Care Provider [phone] Lashawn Moore MD Unavailable [phone] Encounter Details Date Type Department Care Team (Late st Contact Info) Description 11/27/2024 Results Follow-Up [facility] [address] [facility] [place] [address] Lesley Luis MD PhD [address] [address] Pap with reflex to High Risk HPV and Genotyping (Cytology Component) Social History Tobacco Use Types Packs/Day Years Used Date Smoking Tobacco: Some Days Cigarettes 1.8 27.8 Started: 08/01/1996; Last attempted to quit: 05/23/2024 Smokeless Tobacco: Never Alcohol Use Standard Drinks/Week Comments No 0 [...] on file 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
[2025-01-06 13:53] VITALS: BP 173/103; PULSE 63; RESP 20; TEMP 36.6; O2SAT 100
[2025-01-06 14:09] LABS: EDUAAPPEAR Clear; EDUABILI Negative (Negative); EDUABLOOD Negative (Negative); EDUACOLOR1 Yellow; EDUAGLUCOSE Negative (Negative); EDUAKETONE Negative (Negative); EDUALEUKO Negative (Negative); EDUANITRATE Negative (Negative); EDUAPH 6.5; EDUAPROTEIN 1+ (Negative); EDUASPGRAVITY 1.030; EDUAUROBILI 0.2
--- NOTE | 2025-01-06 14:16 | ED.FEMALEGU ---
HPI - Female Genitourinary General Chief complaint: Urogenital-Female Stated complaint: poss uti Time Seen by Provider: 01/06/25 14:05 Source: patient and RN notes reviewed Mode of arrival: ambulatory Limitations: no limitations History of Present Illness HPI Narrative: 44-year-old female presents Express Care complaining of urinary symptoms for 1 days. Patient reports having dysuria, increased frequency, low back pain. Patient denies any fevers, abdominal pain, body aches, chills, nausea, vomiting, flank pain, blood in urine, or diarrhea. Patient has not taken anything [id number] for symptoms. Patient has a history of urinary tract infections in a kidney stone. Related Data Home Medications ?Medication ?Instructions ?Recorded ?Confirmed ?Last Taken ?Type ferrous sulfate 325 mg (65 mg mg 01/06/25 Unknown History iron) tablet metoprolol tartrate 50 mg tablet mg 01/06/25 Unknown History Allergies Allergy/AdvReac Type Severity Reaction Status Date / Time naproxen Allergy Unknown Unknown Verified 01/06/25 13:59 pregabalin Allergy Unknown Unknown Verified 01/06/25 13:59 Review of Systems Review of Systems: CONSTITUTIONAL: Denies fever, chills, body aches, or sweats. EYES: Denies visual changes, redness, or discharge. ENT: Denies rhinorrhea, congestion, sore throat, or otalgia. CARDIOVASCULAR: Denies chest pain, palpitations, or edema. RESPIRATORY: Denies cough or dyspnea. GASTROINTESTINAL: Denies abdominal pain, nausea, vomiting, or diarrhea. GENITOURINARY: Positive for dysuria, hesitancy, increased frequency. Negative for hematuria. SKIN: Denies rash or itching. MUSCULOSKELETAL: Denies back pain, flank pain, joint pain, or myalgia. NEUROLOGIC: Denies headache, numbness, or weakness. PSYCHIATRIC: Denies anxiety or depression. All other systems reviewed are negative, except as documented in HPI. PMFSH Comments At the time of my signature, I reviewed and agree with the nursing past medical, surgical, social, and family history. There is no relevant family history pertinent to the patient complaint. Exam Narrative: GENERAL: This is a well-nourished, well-developed adult, in no apparent distress. They are non ill-appearing, nontoxic appearing. HEAD: normocephalic, atraumatic. EYES: Sclera clear/white. Vision is grossly intact. Conjunctiva normal bilaterally. Extraocular movements intact. EARS: External ears normal,Hearing grossly intact. NOSE: External nose normal THROAT: Mucous membranes moist NECK: Normal range of motion CARDIOVASCULAR: Regular rate and rhythm. Normal S1-S2. No clicks, gallops, rubs, murmurs. RESPIRATORY: Respiratory rate normal, respiratory effort nonlabored, no respiratory distress. Lung sounds clear to auscultation throughout. Lung sounds equal bilaterally. No adventitious lung sounds. GASTROINTESTINAL: Abdomen soft, flat, non-tender, nondistended. Bowel sounds are active. No hepato-splenomegaly, or palpable masses. No guarding. No rebound tenderness. SKIN: warm, Dry, intact with no suspicious lesions or rash, good texture and turgor. NEURO: awake, alert, and oriented to person, place and time. There were no obvious focal neurologic abnormalities. EXTREMITIES: No joint tenderness, effusion, or edema noted. BACK: Nontender without deformity. Right CVA tenderness. No left CVA tenderness. Course Course Emergency Course: Portions of this record may have been created with voice recognition software Level of Care: Express Care Visit Vital Signs Vital signs: Vital Signs Temperature 97.8 F 01/06/25 13:53 Pulse Rate 63 01/06/25 13:53 Respiratory Rate 20 01/06/25 13:53 Blood Pressure 173/103 H 01/06/25 13:53 Pulse Oximetry 100 01/06/25 13:53 Oxygen Delivery Room Air 01/06/25 13:53 Temperature 97.8 F 01/06/25 13:53 Pulse Rate 63 01/06/25 13:53 Respiratory Rate 20 01/06/25 13:53 Blood Pressure 173/103 H 01/06/25 13:53 Pulse Oximetry 100 01/06/25 13:53 Oxygen Delivery Room Air 01/06/25 13:53 MDM - Female Genitourinary MDM Narrative Medical decision making narrative: Urine dipstick with protein urea. No Evidence of infection. Urine culture pending. Symptoms consistent with urinary tract infection, patient has right CVA tenderness. Will treat with Bactrim. Discussed physical exam findings. Advised supportive measures and signs/symptoms to go to the ER. Pt is appropriate for outpt treatment and f/u. Differential Diagnosis Differential diagnosis: Likely urinary tract infection, cystitis and other (Pyelonephritis) Lab Data Attestation: I reviewed the patient's lab results. Labs: Lab Results 01/06/25 Range/Units 14:04 POC Urine Color Yellow POC Urine Clarity Clear POC Urine pH 6.5 POC Ur Specif [place] 1.030 POC Urine Protein 1+ (Negative) POC Ur Glucose (UA) Negative (Negative) POC Urine Ketones Negative (Negative) POC Urine Blood Negative (Negative) POC Urine Nitrite Negative (Negative) POC Urine Bilirubin Negative (Negative) POC Urine Urobilinogen 0.2 POC U Leukocyte Esteras Negative (Negative) Discharge Plan Discharge Clinical Impression: Urinary tract infection Qualifiers: Urinary tract infection type: site unspecified Hematuria presence: without hematuria Qualified Code(s): N39.0 - Urinary tract infection, site not specified Patient Disposition: Home Condition: Stable Instructions: Antibiotic Form, Urinary Tract Infection in Women (ED) Additional Instructions: Take the antibiotic as prescribed The urine will be sent of for a culture to identify what type of bacteria is causing your infection. If the culture shows that the antibiotic will not get rid of your infection, you will be notified and a new antibiotic will be called in for you. Increase water intake you will need to follow up with your PCP 3-5 days. Go to the ER for any worsening symptoms, abdominal pain, fevers, nausea, vomiting, or any other concerns Patient Language: Central African Prescriptions: New fluconazole 150 mg tablet 150 mg PO Q72H Qty: 2 0RF Rx Instructions: May repeat dose after 72 hours if symptoms persist. sulfamethoxazole-trimethoprim [Bactrim DS] 800-160 mg tablet 1 tablet PO Q12H 7 Days Qty: 14 0RF No Action ferrous sulfate 325 mg (65 mg iron) tablet metoprolol tartrate 50 mg tablet Follow-up/Referrals: Todd,Stephanie Ledesma APN [Primary Care Provider, Unknown] Time of Disposition: 14:13
== END 2025-01-06 14:18 | disposition home or self-care (01) ==
PROVIDERS: PCP Nurse Practitioner Family
DX: N39.0 Urinary tract infection, site not specified (principal); I10 Essential (primary) hypertension
CPT/HCPCS: 81003; 87086; 99203; G0463

== ENCOUNTER 2025-03-07 13:42 | Emergency (ER) | payer OTHER, SELFPAY ==
--- OUTSIDE RECORDS SUMMARY | 2001-06-03 05:15 | XMS_ITS | Continuity of Care Document ---
Author Organization [facility] Address [address] [place] [address] [address] [place] [address] Phone Care Team Providers Care Engine Generator Assembler Name Role Phone Unavailable Unavailable Unavailable Advance Directives Directive Yes / No Effective Date File Name No Information Encounters Encounter Description Practice Location Reason(s) For Visit Diagnoses Date Provider Providers Copied on Encounter [facility], [id number] [place] [address] [address], [place], [place], [id number], [place] tel:[phone] SEC Jorge Alberto PARKER Professional No Information 1200 2 No Information Family History Family Member Type Diagnosis Age At Onset No Information Payers Payer name Insurance type Covered republican ID Authoriza tion(s) No Information Social History Type Description Quantity Date Captured Comments Sex Female Smoking Status No Information Chief Complaint And Reason For Visit No Information Reason For Referral Reason For Referral No Information History Of Present Illness Encounter Date Complaint History Of Prese nt Illness No Information Functional Status Date Functional Assessmen t No Information Instructions Date Instruction Additional Infor mation No Information Assessments Type Assessment Date No Information Patient Care Teams Name Effective Dates (start - stop) Status Members No Information
--- OUTSIDE RECORDS SUMMARY | 2001-06-03 05:15 | XMS_ITS | Continuity of Care Document ---
Author Organization [facility] Address [address] [place] [address] [address] [place] [address] Phone Care Team Providers Care Relief Operator Name Role Phone Unavailable Unavailable Unavailable Advance Directives Directive Yes / No Effective Date File Name No Information Encounters Encounter Description Practice Location Reason(s) For Visit Diagnoses Date Provider Providers Copied on Encounter [facility], [id number] [place] [address] [address], [place], [place], [id number], [place] tel:[phone] SEC Jorge Alberto PARKER Professional No Information 1200 2 No Information Family History Family Member Type Diagnosis Age At Onset No Information Payers Payer name Insurance type Covered green party ID Authoriza tion(s) No Information Social History [...]
[2025-03-07 13:51] VITALS: BP 209/123; PULSE 72; RESP 14; TEMP 36.6; O2SAT 100
[2025-03-07 13:52] VITALS: BP 173/100
[2025-03-07 14:02] LABS: EDUAAPPEAR Cloudy; EDUABILI Negative (Negative); EDUABLOOD 2+ (Negative); EDUACOLOR1 Dark; EDUAGLUCOSE Negative (Negative); EDUAKETONE Negative (Negative); EDUALEUKO 2+ (Negative); EDUANITRATE Positive (Negative); EDUAPH 6.0; EDUAPROTEIN 2+ (Negative); EDUASPGRAVITY 1.025; EDUAUROBILI 0.2
--- NOTE | 2025-03-07 14:03 | ED.FEMALEGU ---
HPI - Female Genitourinary General Chief complaint: Urogenital-Female Stated complaint: UTI Time Seen by Provider: 03/07/25 13:57 Source: patient and RN notes reviewed Mode of arrival: ambulatory Limitations: no limitations History of Present Illness HPI Narrative: 44-year-old female presents with concerns for 1 day history of bilateral flank pain, worse on the right, pelvic pressure, urine frequency and urine dribbling. She reports history of urinary tract infections. She denies fever, aches chills, sweats. She denies nausea vomiting. She reports chronic body aches MD elicited complaint: UTI Related Data Home Medications ?Medication ?Instructions ?Recorded ?Confirmed ?Last Taken ?Type ferrous sulfate 325 mg (65 mg mg 01/06/25 Unknown History iron) tablet metoprolol tartrate 50 mg tablet mg 01/06/25 Unknown History omeprazole 40 mg capsule,delayed mg 03/07/25 Unknown History release Allergies Allergy/AdvReac Type Severity Reaction Status Date / Time naproxen Allergy Unknown Unknown Verified 03/07/25 13:55 pregabalin Allergy Unknown Unknown Verified 03/07/25 13:55 Review of Systems Review of Systems: CONSTITUTIONAL: Denies malaise, chills, sweats, or fever. CARDIOVASCULAR: Denies chest pain, palpitations, or edema. RESPIRATORY: Denies cough or dyspnea. GASTROINTESTINAL: Denies abdominal pain, nausea, vomiting, diarrhea GENITOURINARY: Reports dysuria, frequency, urgency, suprapubic pressure. Denies flank pain or hematuria. SKIN: Denies rash or itching. MUSCULOSKELETAL: Denies back pain or myalgia. All systems reviewed & are unremarkable except as noted in HPI and below PMFSH Comments At time of signature, agree with nursing past medical, surgical, social and family history. There is no relevant family history pertinent to the presenting complaint Exam Narrative: GENERAL: Well-appearing, well-nourished, and in no acute distress. HEAD: Normocephalic. EYES: PERRLA, conjunctivae clear. NECK: Supple. No lymphadenopathy CHEST: Clear to auscultation. No respiratory distress. HEART: Regular rate and rhythm. ABDOMEN: Soft, nontender upon palpation, nondistended, no palpable or pulsatile masses, no guarding. Bilateral CVA tenderness SKIN: Warm, dry, no rash. NEURO: Alert and oriented x3. PSYCH: Normal mood and affect Course Course Emergency Course: Patient is aware of diagnosis, understands and agrees to treatment plan. Anticipatory guidance given. Patient agrees to follow-up as directed and is aware of reasons to seek care at the emergency department. Portions of this record may have been created with voice recognition software Level of Care: Express Care Visit Vital Signs Vital signs: Vital Signs Temperature 98 F 03/07/25 13:51 Pulse Rate 72 03/07/25 13:51 Respiratory Rate 14 03/07/25 13:51 Blood Pressure 209/123 H 03/07/25 13:51 Pulse Oximetry 100 03/07/25 13:51 Oxygen Delivery Room Air 03/07/25 13:51 Temperature 98 F 03/07/25 13:51 Pulse Rate 72 03/07/25 13:51 Respiratory Rate 14 03/07/25 13:51 Blood Pressure 173/100 H 03/07/25 13:52 Pulse Oximetry 100 03/07/25 13:51 Oxygen Delivery Room Air 03/07/25 13:51 Reviewed. MDM - Female Genitourinary MDM Narrative Medical decision making narrative: Exam findings and UA show no acute concerns or changes; patient is non-toxic appearing and is in no distress. Patient is appropriate for outpatient treatment and follow-up. Differential Diagnosis Differential diagnosis: Likely urinary tract infection and cystitis Lab Data Labs: Lab Results 03/07/25 Range/Units 13:57 POC Urine Color Dark POC Urine Clarity Cloudy POC Urine pH 6.0 POC Ur Specif [place] 1.025 POC Urine Protein 2+ (Negative) POC Ur Glucose (UA) Negative (Negative) POC Urine Ketones Negative (Negative) POC Urine Blood 2+ (Negative) POC Urine Nitrite Positive (Negative) POC Urine Bilirubin Negative (Negative) POC Urine Urobilinogen 0.2 POC U Leukocyte Esteras 2+ (Negative) Critical Care Time Critical Care Time Critical Care Time: No Discharge Plan Discharge Clinical Impression: Urinary tract infection Patient Disposition: Home Condition: Stable Instructions: Antibiotic Form, Urinary Tract Infection in Women (ED) Additional Instructions: We will send a urine culture to the lab; if the culture identifies an organism that the prescribed antibiotic will not treat, you will receive a phone call from an urgent care staff member and an appropriate antibiotic will be prescribed. -Your symptoms should begin to improve within a day of starting antibiotics. But you should finish all the antibiotic pills you get. Otherwise your infection might come back. -Also recommend: increase water intake. Tylenol/ibuprofen as needed for pain or fever -Follow-up with your primary care provider for urine recheck or seek ER visit if condition worsens with high fever, nausea, vomiting and severe back pain. Patient Language: Grenadian Prescriptions: New fluconazole 150 mg tablet 150 mg PO Q48H 3 Days Qty: 2 0RF Rx Instructions: take one dose now, and a second dose if symptoms remain in 48 hours phenazopyridine [Pyridium] 200 mg tablet 200 mg PO TID PRN (Reason: pain) Qty: 6 0RF amoxicillin-pot clavulanate 875-125 mg tablet 1 tablet PO Q12H 10 Days Qty: 20 0RF No Action ferrous sulfate 325 mg (65 mg iron) tablet metoprolol tartrate 50 mg tablet omeprazole 40 mg capsule,delayed release(DR/EC) Follow-up/Referrals: Broosk,Stephanie Ledesma APN [Primary Care Provider, Unknown] Time of Disposition: 14:05
--- OUTSIDE RECORDS SUMMARY | 2025-03-08 13:03 | XMS_ITS | Encounter Summary ---
Author Organization [facility] Address [address] [place] [address] Phone Care Team Providers Care Named Account Executive Name Role Phone Emery Lucia MD Primary Care Provider + Philomena Howard Primary Care Provider + Sherlyn Siddiqui RN Unavailable Unavailab Stephanie Feliciano NP Primary Care Provider [phone] Lashawn Moore MD Unavailable [phone] Encounter Details Date Type Department Care Team (Late st Contact Info) Description 05/18/2015 Orders Only [facility] Provider, MD Jose [address] [place] [id number] Social History Tobacco Use Types Packs/Day Years Used Date Smoking Tobacco: Former Cigarettes Q uit: 05/03/2013 Alcohol Use Standard Drinks/Week Comments No 0 (1 standard drink = 0.6 oz pur e alcohol) Comments Unknown Sex and Gender Information Value Date Recorded Sex Assigned at Not on file 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 Gender Identity Not on file Sexual Orientation [...] documented as of this encounter Care Teams Named Account Executive Relationship Specialty Start Date End Date Emery Lucia MD [address] [place] [address] PCP - General 07/03/14 05/17/17 Philomena Howard PA [address] [place] [address] PCP - General 05/18/17 09/02/20 Stephanie Brooks NP [address] [place] [address] PCP - General 09/03/20 Sherlyn Siddiqui, DAVID Registered Nurse Pain Management 05/18/17 Lashawn Moore MD [address] [place], [place] [address] Referring Physician General Surgery 03/05/22 documented as of this encounter
--- OUTSIDE RECORDS SUMMARY | 2025-03-08 13:04 | XMS_ITS | Data Portability ---
Author Organization [facility] Address [address] [place] [address] Care Team Providers Care Fan Installer Name Role Phone STEPHANIE WASSERMAN Primary Care Provider Assessment No assessment recorded. Plan of Treatment Reminders Order Date Submit Date Provider Last Modified By Organization Details Last Modified Time Details Appointments ANY 30 2024 02:00P M Stephaine Wasserman APN, WEAPONS MECHANIC-C Not available Not available Not available ANY 15 2024 03:45P M Stephanie Wasserman APN, WEAPONS MECHANIC-Ana Not available Not available Not available Lab lipid panel, serum 2023 024 [facility], [address], [address], 03/08/2024 12:16:51 CMP, serum or plasma 2023 024 [facility], [address] [place] [address] [address], [place], [address], 03/08/2024 12:16:52 vitamin B12 + folate, serum or blood 2023 024 [facility], 102 [facility], [facility] 2, [place], [address], 03/08/2024 12:16:55 HbA1c (hemoglob in A1c), blood 2023 024 [facility], 102 [facility], [facility] 2, [place], [address], 03/08/2024 12:16:56 albumin/c reatinine , mass ratio, urine 2023 024 [facility], [address], [place], [address], 03/08/2024 12:16:50 CBC w/ auto diff 2023 024 [facility], [address], [place], [address], 03/08/2024 12:16:57 TSH, ultra-sen sitive, serum 2023 024 [facility] [address], [place], [address], 03/08/2024 12:16:54 urinalysi s, dipstick 2023 024 In-Office Order, Internal Use Only DO Not Attach Compendium DO Not Attach Compendium, Do Not Delete/merge, [id number] 09/16/2023 11:31:35 culture, urine 2023 024 [facility], [address] [facility], [address], [place], [address], 09/20/2023 20:11:11 test, urine 2023 024 [email or web address] In-Office Order, Internal Use Only DO Not Attach Compendium DO Not Attach Compendium, Do Not Delete/merge, [id number] 06/22/2023 17:19:02 biopsy, endometri al 2023 024 [facility] [address], [place], [address], 06/22/2023 17:19:02 cytology report, thin prep, smear or scraping, cervical or vaginal - brush and broom. cervical and endocervi rob. collected by emma mota HAZARDOUS MATERIALS DRIVER 2023 024 [facility], [address], [place], [address], 05/29/2023 07:19:40 HIV 1 + 2, meaningfu l use set 2023 024 [facility], [address] [place] [address], [facility], [place], [address], 05/27/2023 11:34:35 RPR (rapid plasma reagin), serum [facility]23 024 [facility], [address] [place] [address], [facility], [place], [address], 05/27/2023 11:34:33 HBsAg (hepatiti s B surface Ag), EIA, serum 2023 024 [facility], [address] [place] [address], [facility] 2, [place], [address], 05/27/2023 11:34:41 Hepatitis C IgG Ab, qual, serum 2023 024 [facility], [address] [place] [address], [facility] 2, [place], [address], 05/27/2023 11:34:22 HSV 2 IgG Ab, QN, IA, serum 2023 024 [facility], [address] [place] [address], [facility] 2, [place], [address], 05/27/2023 11:34:23 TSH + free T4, serum 2023 024 [facility], [address] [place] [address], [facility] 2, [place], [address], 05/27/2023 11:34:27 prolactin , serum 2023 024 [facility], [address] [place] [address], [facility] 2, [place], [address], 05/27/2023 11:34:31 CBC w/ auto diff 2023 024 [facility], [address] [place] [address], [facility] 2, [place], [address], 05/27/2023 07:14:30 estradiol , serum 2023 024 [facility], [address] [place] [address] 2, [place], [address], 05/27/2023 11:34:32 lh + FSH, serum 2023 024 [facility], [address] [place] [address] 2, [place], [address], 05/27/2023 11:34:34 HCG, intact + beta subunit, quant, serum or plasma 2023 024 [facility], [address] [place] [address] 2, [place], [address], 05/27/2023 11:34:30 Referral physical therapist referral 2023 024 [facility], [address], [facility] 10, [place], [address], 10/26/2023 14:56:27 gynecolog ist referral - Most recent labs, pap, imaging are included with this referral. 2023 024 [facility], [address] [place] [address], [address], 07/15/2023 17:16:16 Procedures None recorded. Surgeries None recorded. Imaging MAMMO, screening , tomosynth esis, bilateral 2023 024 [facility]) Scheduling, [address] [place], [address], 08/13/2023 13:41:55 US, pelvis, transabdo aneesh + transvagi nal 2023 024 [facility] ([facility]) Scheduling, [address] [place], [address], 05/26/2023 17:15:05 Medication Orders Airsupra 90 mcg-80 mcg/actua tion HFA aerosol inhaler 2024 025 [id number], [address] [place], [address], 10/25/2024 17:10:20 cyclobenz aprine 10 mg tablet 2024 025 [id number], [address] [place], [address], 10/25/2024 17:10:23 metoprolo l tartrate 50 mg tablet 2024 025 [id number], [address] [place], [address], 10/25/2024 17:10:22 amoxicill in 875 mg-potass ium clavulana te 125 mg tablet 2023 024 [id number], [address] [place], [address], 02/01/2024 16:50:29 lactulose 10 gram/15 mL oral solution 2023 024 [id number], [address] [place], [address], 09/16/2023 11:44:06 fluconazo le 150 mg tablet 2023 0[id number] [address] [place], [address], 10/25/2024 16:43:24 Patient TargetsNo targets recorded. Patient Instructions Encounter Date Encounter Id Patient Instructions Last Modified By Organization Details Last Modified Time 05/26/2023 [id number] endometrial biop sy: about this test fernstrn Not available 05/26/2023 14:37:24 A healthy lifest yle: care instructions fernstrn Not available 05/26/2023 14:37:46 09/16/2023 [id number] painful urinatio n (dysuria): care instructions Not available 09/16/2023 11:12:41 Quitting Tobacco : Care Instructions Not available 09/16/2023 11:59:16 Acute Sinusitis: Care Instructions Not available 09/16/2023 11:36:53 A healthy lifest yle: care instructions Not available 09/16/2023 11:59:16 constipation: ca re instructions Not available 09/16/2023 11:44:03 vaginal yeast infection: care instructions Not available 09/16/2023 11:44:03 learning about h igh blood pressure Not available 09/16/2023 11:36:53 bronchitis: care instructions Not available 09/16/2023 11:40:22 Take all antibio tics prescribed to you. If any fever or increase in pain, call/return to office. Not available 09/16/2023 11:47:35 keep f/u as needed Not availab le 09/16/2023 11:47:57 02/01/2024 [id number] Quitting Tobacco : Care Instructions Not available 02/01/2024 17:24:32 high cholesterol : care instructions Not available 02/01/2024 17:24:32 A healthy lifest yle: care instructions Not available 02/01/2024 17:24:32 constipation: ca re instructions Not available 02/01/2024 17:24:32 gastroesophageal reflux disease (GERD): care instructions Not available 02/01/2024 17:24:32 type 2 diabetes: care instructions Not available 02/01/2024 17:24:32 learning about h igh blood pressure Not available 02/01/2024 17:24:32 -Drink plenty of fluids, enough so that your urine is light yellow or clear like water. If you have kidney, heart, or liver disease and have to limit fluids, talk with your doctor before you increase the amount of fluids you drink. -Include high-fiber foods in your diet each day. These include fruits, vegetables, beans, and whole grains. -Get at least 30 minutes of exercise on most days of the week. Walking is a good choice. You also may want to do other activities, such as running, swimming, cycling, or playing tennis or team sports. -Take a fiber supplement, such as Citrucel or Metamucil, every day. Read and follow all instructions on the label. -Schedule time each day for a bowel movement. A daily routine may help. Take your time having your bowel movement. -Support your feet with a small step stool when you sit on the toilet. This helps flex your hips and places your pelvis in a squatting position. -Your doctor may recommend an fjth-zaz-tivtonv laxative to relieve your constipation. Examples are Milk of Magnesia and MiraLax. Read and follow all instructions on the label. Do not use laxatives on a long-term basis. -Call your doctor now or seek immediate medical care if: You have new or worse belly pain. You have new or worse nausea or vomiting. You have blood in your stools. -Watch closely for changes in your health, and be sure to contact your doctor if: Your constipation is getting worse. You do not get better as expected. Not available 02/01/2024 17:28:23 follow up in 6 months Not available 02/01/2024 17:28:27 10/25/2024 [id number] A healthy lifest yle: care instructions Not available 10/25/2024 17:10:18 A healthy lifest yle: care instructions Not available 10/25/2024 17:10:18 learning about t ype 2 diabetes Not available 10/25/2024 17:10:18 type 2 diabetes: care instructions Not available 10/25/2024 17:10:18 high cholesterol : care instructions Not available 10/25/2024 17:10:18 gastroesophageal reflux disease (GERD): care instructions Not available 10/25/2024 17:10:18 learning about h igh blood pressure Not available 10/25/2024 17:10:18 Increase intake of fresh fruits, and vegetables. Avoid packaged foods and fast foods. Follow a low salt diet, drink at least 8-10 8oz glasses of water a day, exercise most days of the week. Take all medications as prescribed. Keep appointments with PCP and all specialists. Not available 10/29/2024 19:16:31 follow up in 6 months Not available 10/29/2024 19:16:34 Reason for Referral Real Estate Associate Attorney Referral for Ab normal uterine bleeding abnormal bleeding and genital warts. Most recent labs, pap, imaging are included with this referral. Referring Physician: Emma Mota, [employer], Encounter Date: 05/26/2023 Physical Therapist Referral for Dyspareunia Referring Physician: Emma Mota [employer], Encounter Date: 05/26/2023 Results Created Date Observation Date Name Description Value Unit Range Abnormal Flag Note LastModifiedBy Organization Detail LastModifiedTime 05/26/19 24 05/27/2023 CBC WITH DIFFE RENTI AL/PL ATELE T WBC 7.6 x10e3 /uL 3.4-10 .8 Not Available [facility] Department [address] [place], [address], 05/27/2023 07:14:29 05/26/19 24 05/27/2023 CBC WITH DIFFE RENTI AL/PL ATELE T RBC 5.11 x10e6 /uL 3.77-5 .28 Not Available [facility] Department [address] [place], [address], 05/27/2023 07:14:29 05/26/19 24 05/27/2023 CBC WITH DIFFE RENTI AL/PL ATELE T hemoglobin 14.5 g/dL 11.1-1 5.9 Not Available [facility] Department [address] [place], [address], 05/27/2023 07:14:29 05/26/19 24 05/27/2023 CBC WITH DIFFE RENTI AL/PL ATELE T hematocrit 45.4 % 34.0-4 6.6 Not Available [facility] Department [address] [place], [address], 05/27/2023 07:14:29 05/26/19 24 05/27/2023 CBC WITH DIFFE RENTI AL/PL ATELE T MCV 89 fL 79-97 Not Available [facility] Department [address] [place], [address], 05/27/2023 07:14:29 05/26/1905/27/2023 CBC WITH DIFFE RENTI AL/PL ATELE T MCH 28.4 pg 26.6-3 3.0 Not Available [facility] Department [address] [place], [address], 05/27/2023 07:14:29 05/26/1905/27/2023 CBC WITH DIFFE RENTI AL/PL ATELE T MCHC 31.9 g/dL 31.5-3 5.7 Not Available [facility] Department [address] [place], [address], 05/27/2023 07:14:29 05/26/19 24 05/27/2023 CBC WITH DIFFE RENTI AL/PL ATELE T RDW 13.8 % 11.5-1 4.5 Not Available [facility] Department [address] [place], [address], 05/27/2023 07:14:29 05/26/19 24 05/27/2023 CBC WITH DIFFE RENTI AL/PL ATELE T platelets 289 x10e3 /uL 150-45 0 Not Available [facility] Department [address] [place], [address], 05/27/2023 07:14:29 05/26/1905/27/2023 CBC WITH DIFFE RENTI AL/PL ATELE T neutrophils 61 % notest b. Not Available [facility] Department [address] [place], [address], 05/27/2023 07:14:29 05/26/19 24 05/27/2023 CBC WITH DIFFE RENTI AL/PL ATELE T lymphs 30 % notest b. Not Available [facility] Department [address] [place] [address], [address], 05/27/2023 07:14:29 05/26/1905/27/2023 CBC WITH DIFFE RENTI AL/PL ATELE T monocytes 6 % notest b. Not Available [facility] Department [address] [place] [address], [address], 05/27/2023 07:14:29 05/26/1905/27/2023 CBC WITH DIFFE RENTI AL/PL ATELE T eos 2 % notest b. Not Available [facility] Department [address] [place] [address], [address], 05/27/2023 07:14:29 05/26/1905/27/2023 CBC WITH DIFFE RENTI AL/PL ATELE T basos 1 % notest b. Not Available [facility] Department [address] [place] [address], [address], 05/27/2023 07:14:29 05/26/1905/27/2023 CBC WITH DIFFE RENTI AL/PL ATELE T neutrophils (absolute) 4.6 x10e3 /uL 1.4-7. 0 Not Available [facility] Department [address] [place] [address], [address], 05/27/2023 07:14:29 05/26/1905/27/2023 CBC WITH DIFFE RENTI AL/PL ATELE T lymphs (absolute) 2.3 x10e3 /uL 0.7-3. 1 Not Available [facility] Department [address] [place] [address], [address], 05/27/2023 07:14:29 05/26/1905/27/2023 CBC WITH DIFFE RENTI AL/PL ATELE T monocytes(ab solute) 0.5 x10e3 /uL 0.1-0. 9 Not Available [facility] Department [address] [place] [address], [place], [address], 05/27/2023 07:14:29 05/26/1905/27/2023 CBC WITH DIFFE RENTI AL/PL ATELE T eos (absolute) 0.2 x10e3 /uL 0.0-0. 4 Not Available [facility] Department [address] [place] [address], [address], 05/27/2023 07:14:29 05/26/1905/27/2023 CBC WITH DIFFE RENTI AL/PL ATELE T baso (absolute) 0.1 x10e3 /uL 0.0-0. 2 Not Available [facility] Department [address] [place] [address], [address], 05/27/2023 07:14:29 05/26/1905/27/2023 CBC WITH DIFFE RENTI AL/PL ATELE T immature granulocytes 0.1 % notest b. Not Available [facility] Department [address] [place] [address], [address], 05/27/2023 07:14:29 05/26/1905/27/2023 CBC WITH DIFFE RENTI AL/PL ATELE T immature grans (abs) 0.0 x10e3 /uL 0.0-0. 1 Not Available [facility] Department [address] [place] [address], [address], 05/27/2023 07:14:29 05/26/1905/27/2023 CBC WITH DIFFE RENTI AL/PL ATELE T NRBC 0 % 0-0 Not Available [facility] Department [address] [place] [address], [address], 05/27/2023 07:14:29 05/26/1905/27/2023 HCV ANTIB OCTAVIO hep C virus Ab Non Reacti ve nonrea ctive HCV antib octavio alone does not diffe renti ate betwe en previ ously resol nikko infec tion and activ e infec tion. Equiv ocal and React celeste HCV antib octavio resul ts shoul d be follo wed up with an HCV RNA test to suppo rt the diagn osis of activ e HCV infec tion. Not Available [facility] [place] [facility] [address] [facility], [place], [address], 05/27/2023 11:34:22 05/26/19 24 05/27/2023 HSV-2 AB, IGG hsv 2 IgG, type spec <0.91 index 0.00-0 .90 Negat celeste <0.91 Equiv ocal 0.91 - 1.09 Posit celeste >1.09 HSV-2 Antib octavio Inter preta tion: Curre nt guide lines and recom menda tions do not recom mend routi ne scree dimas for HSV-2 in asymp tomat ic indiv idual s, inclu ding those that are pregn ant. A negat celeste antib octavio resul t indic ates no detec table antib odies to HSV-2 were found . If recen t expos ure is suspe cted, retes t in 4 to 6 weeks . Equiv ocal sampl es shoul d be retes catherine in 4 to 6 weeks . A posit celeste resul t indic ates the prese nce of detec table IgG antib octavio to HSV-2 . FALSE POSIT CELESTE RESUL TS MAY OCCUR . Repea t testi ng, or testi ng by a diffe rent metho d, may be indic ated in some setti ngs (e.g. patie nts with low likel ihood of HSV infec tion) . If clini johan appro priat e, retes t 4 to 6 weeks later . HSV-2 IgG antib octavio testi ng resul ts shoul d be clini johan corre lated . Not Available [facility] ([facility] [place] [place] [facility]) [address] [facility], [place], [address], 05/27/2023 11:34:23 05/26/19 24 05/27/2023 TSH+F REE T4 TSH 1.010 uIU/m L 0.450- 4.500 Not Available [facility] ([facility] [place] [place] [facility]) [address] [place], [address], 05/27/2023 11:34:27 05/26/1905/27/2023 TSH+F REE T4 T4,free(dire ct) 1.14 NG/dL 0.82-1 .77 Not Available [facility] ([facility] [place] [facility] [address] [place], [address], 05/27/2023 11:34:27 05/26/19 24 05/27/2023 HCG,B ETA SUBUN IT, QNT HCG,beta subunit,qnt, serum <1 mIU/m L Femal e (Non- pregn ant) 0 - 5 (Post menop ausal ) 0 - 8 Femal e (Preg nant) Weeks of Gesta tion 3 6 - 71 4 10 - 750 5 698 - 1447 6 158 - 17742 7 9463 -7845 63 8 28923 -5315 71 9 80793 -0361 10 10 11252 -1933 77 12 85160 -9420 12 14 94258 - 18918 15 09586 - 77263 16 0782 - 33179 17 1338 - 16484 18 4304 - 31769 Ro ECLIA metho dolog y Not Available [facility] ([facility] [place] [place] [facility]) [address] [place], [address], 05/27/2023 11:34:30 05/26/19 24 05/27/2023 PROLA CTIN prolactin 11.0 NG/mL 4.8-33 .4 Not Available [facility] ([facility] [place] [place] [facility]) [address] [place], [address], 05/27/2023 11:34:31 05/26/19 24 05/27/2023 ESTRA DIOL estradiol 54.6 pg/mL Adult Femal e Range Folli cular phase 12.5 - 166.0 Ovula tion phase 85.8 - 498.0 Lutea l phase 43.8 - 211.0 Postm enopa usal <6.0 - 54.7 Pregn bismark 1st trime ster 215.0 - >4300 .0 Ro ECLIA metho dolog y Not Available [facility] ([facility] [place] [place] [facility]) [address] [place], [address], 05/27/2023 11:34:32 05/26/19 24 05/27/2023 RPR, RFX QN RPR/C ONFIR M TP RPR Non Reacti ve nonrea ctive Not Available [facility] ([facility] [place] [place] [facility]) [address] [place], [address], 05/27/2023 11:34:33 05/26/19 24 05/27/2023 FSH AND LH LH 8.7 mIU/m L Adult Femal e Range Folli cular phase 2.4 - 12.6 Ovula tion phase 14.0 - 95.6 Lutea l phase 1.0 - 11.4 Postm enopa usal 7.7 - 58.5 Not Available [facility] ([facility] [place] [place] [facility] [address] [place], [address], 05/27/2023 11:34:34 05/26/1905/27/2023 FSH AND LH FSH 5.6 mIU/m L Adult Femal e Range Folli cular phase 3.5 - 12.5 Ovula tion phase 4.7 - 21.5 Lutea l phase 1.7 - 7.7 Postm enopa usal 25.8 - 134.8 Not Available [facility] ([facility] [place] [place] [facility]) [address] [place], [address], 05/27/2023 11:34:34 05/26/1905/27/2023 HIV AB/P2 4 AG WITH REFLE X HIV Ab/P24 Ag screen Non Reacti ve nonrea ctive HIV Negat celeste HIV-1 /HIV- 2 antib odies and HIV-1 p24 antig en were NOT detec catherine. There is no labor atory evide nce of HIV infec tion. Not Available [facility] ([facility] [place] [place] [facility]) [address] [place], [address], 05/27/2023 11:34:35 05/26/19 24 05/27/2023 HBSAG SCREE N HBsAg screen Negati ve negati ve Not Available [facility] ([facility] [place] [place] [facility] [address] [facility], [place], [address], 05/27/2023 11:34:41 05/26/19 24 05/28/2023 IGP,C TNGTV ,APT HPV,R FX16/ 18,45 diagnosis: Junior CANCINO CELESTE FOR INTRA EPITH ELIAL LESIO N OR BETSEY EREN . Not Available [facility] ([facility] [place] [place] [facility]) [address] [facility], [place], [address], 05/29/2023 07:19:40 05/26/1905/28/2023 IGP,C TNGTV ,APT HPV,R FX16/ 18,45 specimen adequacy: Junior johnson Satis facto ry for evalu ation . Endoc ervic al and/o r squam ous metap lasti c cells (endo cervi rob compo nent) are prese nt. Not Available [facility] ([facility] [place] [place] [facility]) [address] [facility], [place], [address], 05/29/2023 07:19:40 05/26/19 24 05/28/2023 IGP,C TNGTV ,APT HPV,R FX16/ 18,45 clinician provided ICD10: Junior johnson Z01.4 19 Z72.5 1 N93.9 Not Available [facility] ([facility] [place] [place] [facility] [address] [facility], [place], [address], 05/29/2023 07:19:40 05/26/1905/28/2023 IGP,C TNGTV ,APT HPV,R FX16/ 18,45 performed by: Junior prakash, Cytot jarad johnson (ASCP ) Not Available [facility] ([facility] [place] [place] [facility]) [address] [place], [address], 05/29/2023 07:19:40 05/26/19 24 05/28/2023 IGP,C TNGTV ,APT HPV,R FX16/ 18,45 . . Not Available [facility] ([facility] [place] [place] [facility] [address] [facility], [place], [address], 05/29/2023 07:19:40 05/26/19 24 05/28/2023 IGP,C TNGTV ,APT HPV,R FX16/ 18,45 note: Commen t The Pap smear is a scree dimas test desig keyonna to aid in the detec tion of ngozi ligna nt and malig nant condi tions of the uteri ne cervi x. It is not a diagn ostic proce dure and shoul d not be used as the sole means of detec ting cervi rob cance r. Both false -posi tive and false -nega tive repor ts do occur . Not Available [facility] ([facility] [place] [place] [facility]) [address] [facility], [place], [address], 05/29/2023 07:19:40 05/26/19 24 05/28/2023 IGP,C TNGTV ,APT HPV,R FX16/ 18,45 HPV aptima Negati ve negati ve This nucle ic acid ampli ficat ion test detec ts fourt een high- risk HPV types (16,1 8,31, 33,35 ,39,4 5,51, 52,56 ,58,5 9,66, 68) witho ut diffe renti ation . Not Available [facility] ([facility] [place] [place] [facility] [address] [facility], [place], [address], 05/29/2023 07:19:40 05/26/19 24 05/28/2023 IGP,C TNGTV ,APT HPV,R FX16/ 18,45 HPV genotype reflex Commen t Crite eduardo not met, HPV Genot ype not perfo rmed. Not Available [facility] ([facility] [place] [place] [facility] [address] [facility], [place], [address], 05/29/2023 07:19:40 05/26/19 24 05/28/2023 IGP,C TNGTV ,APT HPV,R FX16/ 18,45 chlamydia, nuc. acid amp Negati ve negati ve Not Available [facility] ([facility] [place] [place] [facility]) [address] [facility], [place], [address], 05/29/2023 07:19:40 05/26/19 24 05/28/2023 IGP,C TNGTV ,APT HPV,R FX16/ 18,45 gonococcus, nuc. acid amp Negati ve negati ve Not Available [facility] ([facility] [place] [place] [facility] [address] [facility], [place], [address], 05/29/2023 07:19:40 05/26/19 24 05/28/2023 IGP,C TNGTV ,APT HPV,R FX16/ 18,45 trich vag by TAN Negati ve negati ve Not Available [facility] ([facility] [place] [place] [facility]) [address] [facility], [place], [address], 05/29/2023 07:19:40 06/22/19 24 06/25/2023 PATHO LOGY REPOR T . Junior t Mater ial submi tted: . endom etriu m - ENDOM ETRIA L BIOPS Y Not Available [facility] ([facility] [place] [place] [facility] [address] [facility], [place], [address], 06/25/2023 16:20:40 06/22/19 24 06/25/2023 PATHO LOGY REPOR T . Commmaggie t Clini raegan provi ded ICD-1 0: N93.9 Not Available [facility] ([facility] [place] [place] [facility] [address] [facility], [place], [address], 06/25/2023 16:20:40 06/22/19 24 06/25/2023 PATHO LOGY REPOR T . Commmaggie t Diagn osis: ENDOM ETRIA L BIOPS Y: WEAKL Y PROLI FERAT CELESTE ENDOM ETRIU M. SMALL BENIG N ENDOM ETRIA L POLYP . BENIG N ENDOC ERVIC AL TISSU E. EHA 06/25 1309 Local Not Available [facility] ([facility] [place] [place] [facility] [address] [place], [address], 06/25/2023 16:20:40 06/22/19 24 06/25/2023 PATHO LOGY REPOR T . Commen t Johanne anderson d: . Jessica you MD, Patho logis t Not Available [facility] ([facility] [place] [facility] [address] [place], [address], 06/25/2023 16:20:40 06/22/19 24 06/25/2023 PATHO LOGY REPOR T . Commen t Gross descr iptio n: . 1 Conta iner, forma zulay-f illed , label ed with patie nt ident ifica tion. ENDOM ETRIA L BIOPS Y: MULTI PLE FRAGM ENT(S ) OF SOFT MATER IAL, BLOOD , AND MUCUS MEASU RING 3.0 X 1.5 X 0.1 CM IN AGGRE GATE. FILTE RED AND SUBMI TTED IN CASSE TTE(S ) A1. /Hema SMITH 06/24 0143 Local Not Available [facility] ([facility] [place] [facility] [address] [place], [address], 06/25/2023 16:20:40 06/22/19 24 06/25/2023 PATHO LOGY REPOR T . Commen t Patho logis t provi ded ICD-1 0: N84.0 Not Available [facility] ([facility] [place] [facility] [address] [facility], [place], [address], 06/25/2023 16:20:40 06/22/19 24 06/25/2023 PATHO LOGY REPOR T . Commen t CPT . 65439 1 Not Available [facility] ([facility] [place] [facility] [address] [facility], [place], [address], 06/25/2023 16:20:40 06/22/19 24 06/22/2023 pregn bismark test, urine HCG negati ve Not Available In-Office Order Internal Use Only DO Not Attach Compendium DO Not Attach Compendium, Do Not Delete/merge, [id number] 06/22/2023 16:31:46 09/16/19 24 09/20/2023 URINE CULTU RE,CO MPREH ENSIV E urine culture,comp rehensive FINAL REPORT Not Available [facility] ([facility] [place] [place] [facility] [address] [facility], [place], [address], 09/20/2023 20:11:11 09/16/19 24 09/20/2023 URINE CULTU RE,CO MPREH ENSIV E result 1 COMMEN T No growt h in 36 - 48 hours . Not Available [facility] ([facility] [place] [place] [facility] [address] [facility], [place], [address], 09/20/2023 20:11:11 09/16/19 24 09/16/2023 urina lysis , dipst ick Leukocytes Negati ve Not Available In-Office Order Internal Use Only DO Not Attach Compendium DO Not Attach Compendium, Do Not Delete/merge, [id number] 09/16/2023 11:12:31 09/16/19 24 09/16/2023 urina lysis , dipst ick Nitrite negati ve Not Available In-Office Order Internal Use Only DO Not Attach Compendium DO Not Attach Compendium, Do Not Delete/merge, [id number] 09/16/2023 11:12:31 09/16/19 24 09/16/2023 urina lysis , dipst ick Urobilinogen .2 Not Available In-Of fice Order Internal Use Only DO Not Attach Compendium DO Not Attach Compendium, Do Not Delete/merge, [id number] 09/16/2023 11:12:31 09/16/19 24 09/16/2023 urina lysis , dipst ick Protein Negati ve Not Available In-Office Order Internal Use Only DO Not Attach Compendium DO Not Attach Compendium, Do Not Delete/merge, [facility] 09/16/2023 11:12:31 09/16/19 24 09/16/2023 urina lysis , dipst ick pH 6.0 Not Available In-Office Order Internal Use Only DO Not Attach Compendium DO Not Attach Compendium, Do Not Delete/merge, [facility] 09/16/2023 11:12:31 09/16/19 24 09/16/2023 urina lysis , dipst ick Specific [place] 1.025 Not Available In-Off ice Order Internal Use Only DO Not Attach Compendium DO Not Attach Compendium, Do Not Delete/merge, [facility] 09/16/2023 11:12:31 09/16/19 24 09/16/2023 urina lysis , dipst ick Ketone Negati ve Not Available In-Office Order Internal Use Only DO Not Attach Compendium DO Not Attach Compendium, Do Not Delete/merge, [facility] 09/16/2023 11:12:31 09/16/19 24 09/16/2023 urina lysis , dipst ick Bilirubin Negati ve Not Available In-Office Order Internal Use Only DO Not Attach Compendium DO Not Attach Compendium, Do Not Delete/merge, [facility] 09/16/2023 11:12:31 09/16/19 24 09/16/2023 urina lysis , dipst ick Glucose Negati ve Not Available In-Office Order Internal Use Only DO Not Attach Compendium DO Not Attach Compendium, Do Not Delete/merge, [facility] 09/16/2023 11:12:31 09/16/19 24 09/16/2023 urina lysis , dipst ick Appearance Clear Not Available In-Offi ce Order Internal Use Only DO Not Attach Compendium DO Not Attach Compendium, Do Not Delete/merge, [id number] 09/16/2023 11:12:31 09/16/1909/16/2023 urina lysis , dipst ick Color Yellow Not Available In-Office Order Internal Use Only DO Not Attach Compendium DO Not Attach Compendium, Do Not Delete/merge, [id number] 09/16/2023 11:12:31 09/16/19 24 09/16/2023 urina lysis , dipst ick Blood Non-He molyze d: Trace Not Available In-Office Order Internal Use Only DO Not Attach Compendium DO Not Attach Compendium, Do Not Delete/merge, [id number] 09/16/2023 11:12:31 11/05/1911/05/2023 Gluco se [Mass /volu me] in Arter ial blood glucose [mass/volume ] in capillary blood by glucometer 95 mg/dL low: 70mg/d Lhigh: 125mg/ dL Not Available Not Available 10/24/2024 09:59:36 11/05/19 24 11/05/2023 Gluco se [Mass /volu me] in Arter ial blood specimen source identified Cap Finger stick Not Available Not Available 09:59:36 11/05/19 24 11/10/2023 Patho logy study pathology report.secti on heading Surgic al Pathol ogy Report Case: [id number] Author nirali Butts er: Vanna cope, Lashawn Benitez MD [facility] catherine: 2023 11:50 AM Orderi ng Locati on: [facility] Receiv ed: 2023 10:09 AM Hospit al - [facility] Op Pathol ogist: Chon Sandoval MD Specim en: Gastri c Biopsy , Antrum Biopsy - Rule Out H Pylori Not Available Not Available 10:01:09 11/05/19 24 11/10/2023 Patho logy study pathology report final diagnosis narrative Gastri c biopsi es: Chroni c gastri tis, negati ve for Helico bacter Commen t: Helico bacter pylori IHC stain is negati ve. Not Available Not Available 10:01:09 11/05/19 24 11/10/2023 Patho logy study pathology report microscopic observation narrative other stain Micros copic examin ation is perfor med and substa ntiate s the above diagno sis. Not Available Not Available 10:01:09 11/05/19 24 11/10/2023 Patho logy study pathology report gross observation narrative A. The requis ition and specim en(s) are identi fied with the patien t's name (Senia Toledo ), MRN, and . Receiv ed in formal in labele d antru m biopsy -rule out H pylori , are 2 vaughn-pi nk soft tissue fragme nts, 0.3 and 0.4 [facility] ion. The specim en is submit catherine in [place] in [facility] te a 1. AW Not Available Not Available 10:01:09 11/05/19 24 11/10/2023 Patho logy study pathologist location at [facility] Not Available Not Available 10:01:09 11/05/1911/10/2023 Patho logy study service comment The perfor juan charac terist ics of all immuno histoc hemica l and indire ct immuno fluore scence stains (if any) cited in this report were determ ined by the Histop athneeraj jennings of [facility]. Some of these tests were develo ped by our own mary jennings and have not been cleare d or approv ed by the [place] Food and Drug Admini strati on. The FDA does not requir e this test to go throug h premar ket FDA review . These tests are used for clinic al purpos es. They should not be regard ed as invest igatio nal or for resear ch. This mary jennings is certif ied under the Clinic al Mary jennings Improv ement Amendm ents (CLIA) as qualif ied to perfor high comple xity clinic al mary jennings testin g. H&E slides and specia l stains prepar ed at [facility] , [place]. [address] (CLIA# [id number]) unless otherw ise specif ied. This case was interp reted by the [facility] Depart ment of Pathol ogjacob. When applic able, select refere edsonmyranda jennings elvirapalak yanet is perfor med at the [facility] Pathol og Indepe ndejose manuel her , [address] [place] [address]. Not Available Not Available 10:01:09 11/05/19 24 11/10/2023 Patho logy study embedded images Not Available Not Available 10/02 10:01:09 03/07/20 24 03/08/2024 ALBUM IN/CR EATIN INE RATIO ,URIN E creatinine, urine 190.2 mg/dL notest ab. Not Available [facility] ([facility] [place] [place] [facility] [address] [facility], [place], [address], 03/08/2024 12:16:50 03/07/20 24 03/08/2024 ALBUM IN/CR EATIN INE RATIO ,URIN E albumin, urine 55.7 ug/mL notest ab. Not Available [facility] ([facility] [place] [place] [facility] [address] [facility], [place], [address], 03/08/2024 12:16:50 03/07/20 24 03/08/2024 ALBUM IN/CR EATIN INE RATIO ,URIN E alb/creat ratio 29 mg/g_ creat 0-29 Luisana l: 0 - 29 Moder ately incre ased: 30 - 300 Sever dannielle incre ased: >300 Not Available [facility] ([facility] [place] [place] [facility] [address] [facility], [place], [address], 03/08/2024 12:16:50 03/07/20 24 03/08/2024 LIPID PANEL cholesterol, total 187 mg/dL 100-19 9 Not Available [facility] ([facility] [place] [place] [facility] [address] [facility], [place], [address], 03/08/2024 12:16:51 03/07/20 24 03/08/2024 LIPID PANEL triglyceride s 108 mg/dL 0-149 Not Available [facility] ([facility] [place] [place] [facility] [address] [place], [address], 03/08/2024 12:16:51 03/07/20 24 03/08/2024 LIPID PANEL HDL cholesterol 41 mg/dL >39 Not Available [facility] ([facility] [place] [place] [facility] [address] [place], [address], 03/08/2024 12:16:51 03/07/20 24 03/08/2024 LIPID PANEL VLDL cholesterol rob 20 mg/dL 5-40 Not Available [facility] ([facility] [place] [place] [facility] [address] [place], [address], 03/08/2024 12:16:51 03/07/20 24 03/08/2024 LIPID PANEL LDL chol calc ([facility]) 126 mg/dL 0-99 above high normal Not Available [facility] ([facility] [place] [place] [facility] [address] [place], [address], 03/08/2024 12:16:51 03/07/20 24 03/08/2024 COMP. METAB OLIC PANEL (14) glucose 95 mg/dL 70-99 Not Available [facility] ([facility] [place] [place] [facility] [address] [place], [address], 03/08/2024 12:16:52 03/07/20 24 03/08/2024 COMP. METAB OLIC PANEL (14) BUN 14 mg/dL 6-24 Not Available [facility] ([facility] [place] [place] [facility] [address] [place], [address], 03/08/2024 12:16:52 03/07/20 24 03/08/2024 COMP. METAB OLIC PANEL (14) creatinine 0.65 mg/dL 0.57-1 .00 Not Available [facility] ([facility] [place] [place] [facility] [address] [place], [address], 03/08/2024 12:16:52 03/07/20 24 03/08/2024 COMP. METAB OLIC PANEL (14) eGFR 111 mL/mi n/1.7 3 >59 Not Available [facility] ([facility] [place] [place] [facility] [address] [facility], [place], [address], 03/08/2024 12:16:52 03/07/20 24 03/08/2024 COMP. METAB OLIC PANEL (14) BUN/creatini ne ratio 22 9-23 Not Available [facility] ([facility] [place] [place] [facility] [address] [facility], [place], [address], 03/08/2024 12:16:52 03/07/20 24 03/08/2024 COMP. METAB OLIC PANEL (14) sodium 141 mmol/ L 134-14 4 Not Available [facility] ([facility] [place] [place] [facility] [address] [place], [address], 03/08/2024 12:16:52 03/07/20 24 03/08/2024 COMP. METAB OLIC PANEL (14) potassium 4.1 mmol/ L 3.5-5. 2 Not Available [facility] ([facility] [place] [place] [facility] [address] [facility], [place], [address], 03/08/2024 12:16:52 03/07/20 24 03/08/2024 COMP. METAB OLIC PANEL (14) chloride 102 mmol/ L 96-106 Not Available [facility] ([facility] [place] [place] [facility] [address] [place], [address], 03/08/2024 12:16:52 03/07/20 24 03/08/2024 COMP. METAB OLIC PANEL (14) carbon dioxide, total 24 mmol/ L 20-29 Not Available [facility] ([facility] [place] [place] [facility] [address] [place], [address], 03/08/2024 12:16:52 03/07/20 24 03/08/2024 COMP. METAB OLIC PANEL (14) calcium 9.4 mg/dL 8.7-10 .2 Not Available [facility] ([facility] [place] [place] [facility] [address] [facility] [place], [address], 03/08/2024 12:16:52 03/07/20 24 03/08/2024 COMP. METAB OLIC PANEL (14) protein, total 6.3 g/dL 6.0-8. 5 Not Available [facility] ([facility] [place] [place] [facility] [address] [facility] [place], [address], 03/08/2024 12:16:52 03/07/20 24 03/08/2024 COMP. METAB OLIC PANEL (14) albumin 4.1 g/dL 3.9-4. 9 Not Available [facility] ([facility] [place] [place] [facility] [address] [place], [address], 03/08/2024 12:16:52 03/07/20 24 03/08/2024 COMP. METAB OLIC PANEL (14) globulin, total 2.2 g/dL 1.5-4. 5 Not Available [facility] ([facility] [place] [place] [facility] [address] [facility] [place], [address], 03/08/2024 12:16:52 03/07/20 24 03/08/2024 COMP. METAB OLIC PANEL (14) bilirubin, total 0.3 mg/dL 0.0-1. 2 Not Available [facility] ([facility] [place] [place] [facility] [address] [facility] [place], [address], 03/08/2024 12:16:52 03/07/20 24 03/08/2024 COMP. METAB OLIC PANEL (14) alkaline phosphatase 90 IU/L 44-121 Not Available [facility] ([facility] [place] [place] [facility] [address] [facility] [place], [address], 03/08/2024 12:16:52 03/07/20 24 03/08/2024 COMP. METAB OLIC PANEL (14) AST (SGOT) 17 IU/L 0-40 Not Available [facility] ([facility] [place] [place] [facility] [address] [facility], [place], [address], 03/08/2024 12:16:52 03/07/20 24 03/08/2024 COMP. METAB OLIC PANEL (14) ALT (SGPT) 13 IU/L 0-32 Not Available [facility] ([facility] [place] [place] [facility] [address] [place], [address], 03/08/2024 12:16:52 03/07/20 24 03/08/2024 TSH RFX ON ABNOR MAL TO FREE T4 TSH 1.210 uIU/m L 0.450- 4.500 Not Available [facility] ([facility] [place] [place] [facility] [address] [facility], [place], [address], 03/08/2024 12:16:54 03/07/20 24 03/08/2024 VITAM IN B12 AND FOLAT E vitamin B12 839 pg/mL 232-12 45 Not Available [facility] ([facility] [place] [place] [facility] [address] [place], [address], 03/08/2024 12:16:55 03/07/2003/08/2024 VITAM IN B12 AND FOLAT E folate (folic acid), serum >20.0 NG/mL >3.0 A serum folat e adina ntrat ion of less than 3.1 ng/mL is consi dered to repre sent clini rob defic iency . Not Available [facility] ([facility] [place] [place] [facility] [address] [place], [address], 03/08/2024 12:16:55 03/07/20 24 03/08/2024 HEMOG LOBIN A1C hemoglobin A1C 5.8 % 4.8-5. 6 above high normal Predi abete s: 5.7 - 6.4 Diabe marly: >6.4 Glyce tesfaye contr ol for adult s with diabe marly: <7.0 Not Available [facility] ([facility] [place] [place] [facility] [address] [place], [address], 03/08/2024 12:16:56 03/07/20 24 03/07/2024 CBC WITH DIFFE RENTI AL/PL ATELE T WBC 6.5 x10e3 /uL 3.4-10 .8 Not Available [facility] ([facility] [place] [place] [facility] [address] [place], [address], 03/08/2024 12:16:57 03/07/20 24 03/07/2024 CBC WITH DIFFE RENTI AL/PL ATELE T RBC 5.40 x10e6 /uL 3.77-5 .28 above high normal Not Available [facility] ([facility] [place] [place] [facility] [address] [place], [address], 03/08/2024 12:16:57 03/07/20 24 03/07/2024 CBC WITH DIFFE RENTI AL/PL ATELE T hemoglobin 15.6 g/dL 11.1-1 5.9 Not Available [facility] ([facility] [place] [place] [facility] [address] [place], [address], 03/08/2024 12:16:57 03/07/20 24 03/07/2024 CBC WITH DIFFE RENTI AL/PL ATELE T hematocrit 49.6 % 34.0-4 6.6 above high normal Not Available [facility] ([facility] [place] [place] [facility] [address] [place], [address], 03/08/2024 12:16:57 03/07/20 24 03/07/2024 CBC WITH DIFFE RENTI AL/PL ATELE T MCV 92 fL 79-97 Not Available [facility] ([facility] [place] [place] [facility] [address] [place], [address], 03/08/2024 12:16:57 03/07/20 24 03/07/2024 CBC WITH DIFFE RENTI AL/PL ATELE T MCH 28.9 pg 26.6-3 3.0 Not Available [facility] ([facility] [place] [place] [facility] [address] [place], [address], 03/08/2024 12:16:57 03/07/20 24 03/07/2024 CBC WITH DIFFE RENTI AL/PL ATELE T MCHC 31.5 g/dL 31.5-3 5.7 Not Available [facility] ([facility] [place] [place] [facility] [address] [facility], [place], [address], 03/08/2024 12:16:57 03/07/20 24 03/07/2024 CBC WITH DIFFE RENTI AL/PL ATELE T RDW 13.1 % 11.7-1 5.4 Not Available [facility] ([facility] [place] [place] [facility] [address] [facility], [place], [address], 03/08/2024 12:16:57 03/07/20 24 03/07/2024 CBC WITH DIFFE RENTI AL/PL ATELE T platelets 332 x10e3 /uL 150-45 0 Not Available [facility] ([facility] [place] [place] [facility] [address] [facility], [place], [address], 03/08/2024 12:16:57 03/07/20 24 03/07/2024 CBC WITH DIFFE RENTI AL/PL ATELE T neutrophils 55 % notest ab. Not Available [facility] ([facility] [place] [place] [facility] [address] [facility], [place], [address], 03/08/2024 12:16:57 03/07/20 24 03/07/2024 CBC WITH DIFFE RENTI AL/PL ATELE T lymphs 33 % notest ab. Not Available [facility] ([facility] [place] [place] [facility] [address] [facility], [place], [address], 03/08/2024 12:16:57 03/07/20 24 03/07/2024 CBC WITH DIFFE RENTI AL/PL ATELE T monocytes 7 % notest ab. Not Available [facility] ([facility] [place] [place] [facility] [address] [place], [address], 03/08/2024 12:16:57 03/07/20 24 03/07/2024 CBC WITH DIFFE RENTI AL/PL ATELE T eos 4 % notest ab. Not Available [facility] ([facility] [place] [place] [facility] [address] [facility], [place], [address], 03/08/2024 12:16:57 03/07/20 24 03/07/2024 CBC WITH DIFFE RENTI AL/PL ATELE T basos 1 % notest ab. Not Available [facility] ([facility] [place] [place] [facility] [address] [facility], [place], [address], 03/08/2024 12:16:57 03/07/20 24 03/07/2024 CBC WITH DIFFE RENTI AL/PL ATELE T neutrophils (absolute) 3.5 x10e3 /uL 1.4-7. 0 Not Available [facility] ([facility] [place] [place] [facility] [address] [facility], [place], [address], 03/08/2024 12:16:57 03/07/20 24 03/07/2024 CBC WITH DIFFE RENTI AL/PL ATELE T lymphs (absolute) 2.2 x10e3 /uL 0.7-3. 1 Not Available [facility] ([facility] [place] [place] [facility] [address] [place], [address], 03/08/2024 12:16:57 03/07/20 24 03/07/2024 CBC WITH DIFFE RENTI AL/PL ATELE T monocytes(ab solute) 0.5 x10e3 /uL 0.1-0. 9 Not Available [facility] ([facility] [place] [place] [facility] [address] [place], [address], 03/08/2024 12:16:57 03/07/20 24 03/07/2024 CBC WITH DIFFE RENTI AL/PL ATELE T eos (absolute) 0.3 x10e3 /uL 0.0-0. 4 Not Available [facility] ([facility] [place] [place] [facility] [address] [place], [address], 03/08/2024 12:16:57 03/07/20 24 03/07/2024 CBC WITH DIFFE RENTI AL/PL ATELE T baso (absolute) 0.1 x10e3 /uL 0.0-0. 2 Not Available [facility] ([facility] [place] [place] [facility] [address] [facility], [place], [address], 03/08/2024 12:16:57 03/07/20 24 03/07/2024 CBC WITH DIFFE RENTI AL/PL ATELE T immature granulocytes 0 % notest ab. Not Available [facility] ([facility] [place] [place] [facility] [address] [facility], [place], [address], 03/08/2024 12:16:57 03/07/20 24 03/07/2024 CBC WITH DIFFE RENTI AL/PL ATELE T immature grans (abs) 0.0 x10e3 /uL 0.0-0. 1 Not Available [facility] ([facility] [place] [place] [facility] [address] [facility], [place], [address], 03/08/2024 12:16:57 06/07/19 25 06/07/2024 Hemog lobin A1c/H emogl obin. total in Blood hemoglobin A1C/hemoglob in.total in blood 5.2 % low: 4%high : 5.6% Not Available Not Available 10/24/2024 09:59:40 06/07/1906/07/2024 Hemog lobin A1c/H emogl obin. total in Blood glucose mean value [mass/volume ] in blood estimated from glycated hemoglobin 103 mg/dL The ADA recom mends repor ting an estim ated [place] Gluco se (eAG) with all Hemog lobin A1c resul ts using the equat ion deriv ed from a study of 507 luisana l and diabe tic adult s. Minor ity popul ation s were under repre sente d and child minh were not inclu ded. (Diab etes Care 31:14 73-14 78, 2007) . The eAG is not equiv alent to a fasti ng gluco se. Not Available Not Available 10/24/2024 09:59:40 08/13/19 24 08/06/2023 MAMMO , scree dimas, tomos ynthe sis, bilat eral No observ ation record ed. psimmonsma [facility] ([facility]) Scheduling [address] [place], [address], 08/17/2023 14:08:04 08/17/19 24 08/16/2023 US, pelvi s, compl ete No observ ation record ed. fernstrn [facility] ([facility]) Scheduling [address] [place], [address], 08/18/2023 13:01:47 Result Notes None recorded. 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 Active Stephanie Wasserman APN, FNP-C Attn: Connie g,[address] [facility], [place], [address], [place] 2 12:12:05 Pneumoni a 213004532 Completed 06/17/2016 CT chest 03/13/16 negative Removal Reason: resolved Philomena Howard PA-C Attn: Connie g,[address] [facility], [place], [address], [place] [facility] 7 09:18:54 Candidia sis of vagina 04790037 Completed 03/16/2016 Removal Reason: resolved Philomena Howard PA-C Attn: Parishin g,[address] [facility], [place], [address], [place] [facility] 6 17:34:39 Gastroes ophageal reflux disease 025500715 Completed 07/10/2019 Stephanie Wasserman APN, FNP-C Attn: Connie g,[address] [facility], [place], [address], [place] [facility] 0 14:49:21 Obesity 415977580 Completed 07/07/2016 Philomena Howard PA-C Attn: Connie holt,[address] [facility], [place], [address], [place] - [facility] 7 17:05:17 Headache 63013612 Completed 03/16/2016 Removal Reason: duplicate Philomena Howard PA-C Attn: Accountpalak g,[address] [facility], [place], [address], [place] [facility] 6 17:35:18 Essentia l hyperten flora 10588666 Active Stephanie Wasserman APN, FNP-C Attn: Parishpalak g,[address] [facility], [place], [address], [place] [facility] 2 12:12:05 Hyperlip idemia 40325435 Active elevated trig 09/2015 Stephanie Wasserman APN, FNP-C Attn: Parishpalak g,[address] [facility], [place], [address], [place] [facility] 2 12:12:05 Chronic back pain 811992732 Active Stephanie Wasserman APN, ALANA-C Attn: Parishpalak g,[address] [facility], [place], [address], [place] [facility] 2 12:12:05 Right lower quadrant pain 657759315 Completed 06/17/2016 Philomena Howard PA-C Attn: Accountpalak g,[address] [facility], [place], [address], [place] - [facility] 7 09:20:06 Morbid obesity 217364998 Active Stephanie Wasserman APN, [employer]-C Attn: Connie g,[address] [facility], [place], [address], [place] - [facility] 2 12:12:05 Tobacco user 885708844 Active Stephanie Wasserman APN, FNP-C Attn: Connie yanet,[address] [facility], [place], [place], [address] [place] [address] 2, [facility] - SIF 2 12:12:05 Migraine [id number] Active Stephanie Wasserman APN, FNP-C Attn: [place] g,[address] [facility], [place], [place], [address] [place] [address] 2, [facility] - SIF 2 12:12:05 Cholelit hiasis without obstruct ion [id number] Completed 201407/10/2019 Stephanie Wasserman APN, FNP-C Attn: Connie holt,[address] [place], [place], [address] [place] [address] 2, [facility] - SIF 0 14:25:27 Asthma [id number] Active 2016 Stephanie Wasserman APN, FNP-C Attn: Connie holt,[address] [place], [place], [address] [place] [address] 2, [facility] - SIF 2 12:12:05 Allergic rhinitis [id number] Active 2016 Stephanie Wasserman APN, FNP-C Attn: Connie yanet,[address] [place], [place], [address] [place] [address] 2, [facility] - [facility] 2 12:12:05 Divertic ular disease of colon [id number] Completed 201702/09/2018 Philomena Howard PA-C Attn: Connie g,[address] [place], [place], [address] [place] [address] 2, [place] - [place] 8 16:48:54 Internal hemorrho ids [id number] Active 2017 Stephanie Wasserman APN, FNP-C Attn: Connie g,[address] [place], [place], [address] [place] [address] 2, [facility] - [facility] 2 12:12:05 Divertic ulosis of sigmoid colon [id number] Active 2017 Stephanie Wasserman APN, FNP-C Attn: Connie holt,[address], [place], [place], [address] [place] [address] 2, [facility] - [facility] 2 12:12:05 Gastroes ophageal reflux disease without esophagi tis 054339188 Active 2019 Stephanie Wasserman APN [employer] Attn: Parishpalak g,[address], [place], [place], [address] [place] [address] 2, [facility] 2 12:12:05 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 [id number] Active 2019 Stephanie Wasserman APN, [employer]C Attn: Parishpalak g,[address] [facility], [place], [place], [address] [place] [address] 2, [facility] - [facility] 2 12:12:05 Mood disorder 14590106 Active 2020 Stephanie Wasserman APN [employer] Attn: Connie yanet,[address] [facility], [place], [place], [address] [place] [address] 2, [facility] 2 12:12:05 Pain of multiple joints 23157734 Active 2020 Stephanie Wasserman APN, [employer] Attn: Parishpalak holt,[address] [facility], [place], [place], [address] [place] [address] 2, [facility] 2 12:12:05 Type 2 diabetes mellitus without complica tion [id number] Active 2020 Stephanie Wassreman APN [employer] Attn: Connie g,[address] [facility], [place], [place], [address] [place] [address] 2, [facility] 2 12:12:05 Vitamin D deficien cy 95974524 Active 2020 Stephanie Wasserman APN [employer] Attn: Connie g,[address], [place], [place], [address] [place] [address] 2, [facility] 2 12:12:05 Hidraden itis suppurat jaime 21957931 Active 2021 Stephanie Wasserman APN, [employer] Attn: Connie holt,[address] [facility], [place], [address], [place] 2 12:12:05 Type 2 diabetes mellitus 78092920 Active 2024 Stephanie Wasserman APN, [employer] Attn: Connie holt,[address] [facility], [place], [address], [place] 5 16:56:20 Problem Notes None recorded. Procedures Surgical History Date Name Laterality Status Provider Name and Address Organization Details Recorded Time 06/22/19 24 Endometrial Biopsy completed HEATHER Donahue Attn: Accounting, [address] [facility], [place], [address], [facility] - [facility] 06/22/2023 16:58:20 05/26/19 24 Date of Last Pap Smear completed Maranda Gonzalez [facility] 05/26/2023 14:16:04 03/09/20 22 laparoscopic sleeve gastrectomy completed Bella Singleton [facility] 03/16/2022 12:02:12 04/02/20 16 Eye Surgery completed Kate Rushing, [facility] 11/11/2016 16:27:24 03/17/20 16 Nebulizer tx completed Philomena Howard PA-C Attn: Accounting, [address] [facility], [place], [address], [facility] - [facility] 03/17/2016 15:09:07 05/03/19 16 Cholecystectomy completed Rosa Maria Monroe [facility] 07/07/2016 16:30:30 05/03/18 99 Dilation and Curettage completed Kate [place], [facility] 11/11/2016 16:26:58 08/03/18 97 Caesarean Section completed Kate [place], [facility] 11/11/2016 16:26:47 05/03/18 94 Tonsillectomy completed Kate Rushing, [facility] 11/11/2016 16:27:05 Imaging Results None recorded. Procedure Notes None recorded. Medical Equipment None Reported. Allergies Allergen ID Allergen Name Allergen Category Reaction Reaction Severity Criticality Documentation Date Start Date Code Code System Note Provider Name and Address Organization Details Recorded Time [id number] pregabali n medicatio n hallucina tions moderate Not available 03/16/20222017 49042 2 RxNorm Stephanie Wasserman APN, [employer] Attn: Accountin g,[address], [place], [address], [facility] 2 12:06:25 [id number] naproxen medicatio n vomiting moderate Not available 03/16/2022 7258 RxNorm Stephanie Wasserman APN, [employer] Attn: Accountin g,[address] [facility], [place], [address], [facility] - [facility] 2 12:06:25 71529 Aleve medicatio n vomiting moderate Not available 05/24/2014 30615 1 RxNorm Victorina james MA null, [facility] 5 14:31:02 Medications Name Sig Start Date Stop Date Status Note LastModified by Organization Details LastModified Time Prescript ion - Prior Authoriza tion Request 07/25 completed Not Available Not Available Not Available cyclobenz aprine 10 mg tablet TAKE 1 TABLET BY MOUTH EVERY DAY AT BEDTIME NEEDED 2024 active Not Available Not Available Not Avai lable amoxicill in 500 mg capsule TAKE 1 CAPSULE BY MOUTH THREE TIMES A DAY FOR 10 DAYS 09/15 completed Not Available Not Available Not Available medroxypr ogesteron e 10 mg tablet TAKE 2 TABLETS BY MOUTH EVERY DAY 10/25 completed Not Available Not Available Not Available budesonid e 32 mcg/actua tion nasal spray Raymond 1 spray every day by intranas al route. 11/11 completed Not Available Not Available Not Available metformin 500 mg tablet TAKE 2 TABLETS BY MOUTH TWICE A DAY 03/16 completed Not Available Not Available Not Available potassium chloride ER 10 mEq capsule,e xtended release TAKE 1 (ONE) CAPSULE BY MOUTH DAILY WITH BREAKFAS T - OPEN AND SPRINKLE ON APPLESAU CE OR PUDDING 03/16 completed Not Available Not Available Not Available ipratropi um 0.5 mg-albute rol 3 mg (2.5 mg base)/3 mL nebulizat ion soln INHALE ONE VIAL IN NEBULIZE R FOUR TIMES A DAY NEEDED 05/28 completed Not Available Not Available Not Available Carafate 100 mg/mL oral suspensio n Take 10 mL 4 times a day by oral route as needed. 05/31 completed Not Available Not Available Not Available albuterol sulfate 2.5 mg/3 mL (0.083 %) solution for nebulizat ion INHALE 3 ML EVERY 4-6 HOURS BY NEBULIZA TION ROUTE NEEDED. active Not Available Not Available No t Available cetirizin e 10 mg tablet Take 1 tablet every day by oral route. active Not Available Not Available No t Available atorvasta tin 10 mg tablet TAKE 1 TABLET BY MOUTH ONCE DAILY active Not Available Not Available No t Available azithromy yudith 250 mg tablet TAKE 2 TABLETS BY MOUTH TODAY, THEN TAKE 1 TABLET DAILY FOR 4 DAYS 03/16 completed Not Available Not Available Not Available ibuprofen 800 mg tablet TAKE 1 TABLET BY MOUTH 3 TIMES A DAY WITH FOOD NEEDED FOR PAIN-P T NEEDS APT 03/16 completed Not Available Not Available Not Available nicotine (polacril ex) 2 mg gum CHEW 1 EACH (2 MG TOTAL) NEEDED FOR SMOKING CESSATIO N active Not Available Not Available No t Available fluconazo le 150 mg tablet TAKE 1 TABLET (150 MG TOTAL) BY MOUTH ONCE FOR 1 DOSE. 10/25 completed Not Available Not Available Not Available benzonata te 200 mg capsule 11/28 completed Not Available Not Available Not Available hydrocodo ne 5 mg-acetam inophen 325 mg tablet active Not Available Not Available Not Available fluconazo le 200 mg tablet 09/24 completed ER Not Available Not Available Not Available sucralfat e 1 gram tablet TAKE 1 (ONE) TABLET BY MOUTH 4 TIMES DAILY CRUSH AND DISSOLVE IN SMALL AMOUNT WATER PRIOR TO TAKING. active Not Available Not Available No t Available phenazopy ridine 200 mg tablet 06/23 completed Not Available Not Available Not Available prednison e 20 mg tablet Take 2 tablets every day by oral route for 5 days. 01/14 completed Not Available Not Available Not Available sulfasala zine 500 mg tablet,de layed release TAKE 2 (TWO) TABLETS BY MOUTH 2 TIMES DAILY WITH MORNING AND EVENING MEAL 12/19 completed Not Available Not Available Not Available potassium chloride ER 10 mEq tablet,ex tended release TAKE 1 TABLET BY MOUTH EVERY DAY 02/18 completed Not Available Not Available Not Available metronida zole 500 mg tablet TAKE 1 TABLET BY MOUTH THREE TIMES A DAY FOR 10 DAYS 02/18 completed Not Available Not Available Not Available acetamino phen 300 mg-codein e 30 mg tablet 02/09 completed Not Available Not Available Not Available fexofenad ine 180 mg tablet Take 1 tablet every day by oral route as needed. 2018 active Not Available Not Available Not Avai lable ciproflox acin 250 mg tablet Take 1 tablet every 12 hours by oral route for 5 days. 10/31 completed Not Available Not Available Not Available Joby's wort 300 mg tablet Take by oral route. 05/28 completed Not Available Not Available Not Available divalproe x 500 mg tablet,de layed release TAKE 1 TABLET BY MOUTH EVERY DAY 02/18 completed Not Available Not Available Not Available ciproflox acin 500 mg tablet TAKE 1 TABLET BY MOUTH TWICE A DAY FOR 10 DAYS 02/18 completed Not Available Not Available Not Available sulfameth oxazole 800 mg-trimet hoprim 160 mg tablet 07/09 completed Not Available Not Available Not Available omeprazol e 40 mg capsule,d elayed release TAKE 1 CAPSULE BY MOUTH EVERY DAY BEFORE BREAKFAS T active Not Available Not Available No t Available tramadol 50 mg tablet active Not Available Not Available Not Available methotrex ate sodium 2.5 mg tablet TAKE 4 (FOUR) TABLETS BY MOUTH EVERY 7 DAYS 09/04 completed Not Available Not Available Not Available antipyrin e-benzoca ine 5.4 %-1.4 % ear drops active Not Available Not Available No t Available phenazopy ridine 100 mg tablet Take 1 tablet 3 times a day by oral route for 2 days. 09/09 completed Not Available Not Available Not Available simvastat in 20 mg tablet TAKE 1 TABLET BY MOUTH EVERY DAY-MUST SCHEDULE APPT FOR REFILLS 09/15 completed Not taking Not Available Not Available Not Available ferrous sulfate 325 mg (65 mg iron) tablet TAKE 1 TABLET BY MOUTH EVERY DAY WITH BREAKFAS T active Not Available Not Available No t Available metoprolo l tartrate 50 mg tablet TAKE 1 TABLET BY MOUTH EVERY 12 HOURS active Not Available Not Available No t Available docusate sodium 100 mg capsule TAKE 1 CAPSULE BY MOUTH TWICE A DAY active Not Available Not Available No t Available omeprazol e 20 mg capsule,d elayed release TAKE 1 (ONE) CAPSULE BY MOUTH 2 TIMES DAILY, BEFORE BREAKFAS T AND SUPPER 09/15 completed Not Available Not Available Not Available folic acid 1 mg tablet TAKE 1 TABLET BY MOUTH EVERY DAY 02/18 completed Not Available Not Available Not Available monteluka st 10 mg tablet Take 1 tablet every day by oral route. 09/09 completed Not Available Not Available Not Available hydrochlo rothiazid e 25 mg tablet TAKE 1 TABLET BY MOUTH EVERY DAY 05/09 completed Not Available Not Available Not Available mupirocin 2 % topical ointment APPLY A SMALL AMOUNT TO THE buttock BY TOPICAL ROUTE 3 TIMES PER DAY 07/09 completed Not Available Not Available Not Available furosemid e 20 mg tablet TAKE 2 TABLETS BY MOUTH EVERY DAYPT NEEDS TO CALL OFFICE AND SCHEDULE APPT SHONANO FURTHER REFILLS UNTIL APT IS MADE 03/16 completed Not Available Not Available Not Available ergocalci ferol (vitamin D2) 1,250 mcg (50,000 unit) capsule TAKE 1 CAPSULE BY MOUTH ONE TIME PER WEEK 01/31 completed Not Available Not Available Not Available cefuroxim e axetil 500 mg tablet active Not Available Not Available Not Available polyethyl dilia glycol 3350 17 gram/dose oral powder 02/09 completed Not Available Not Available Not Available levofloxa yudith 750 mg tablet Take 1 tablet every day by oral route. 03/17 completed Not Available Not Available Not Available scopolami ne 1 mg over 3 days transderm al patch PLEASE SEE ATTACHED FOR DETAILED DIRECTIO NS 03/16 completed Not Available Not Available Not Available methylpre dnisolone 4 mg tablets in a dose pack TAKE 6 TABLETS ON DAY 1 DIRECTED ON PACKAGE AND DECREASE BY 1 TAB EACH DAY FOR A TOTAL OF 6 DAYS 03/16 completed Not Available Not Available Not Available albuterol sulfate HFA 90 mcg/actua tion aerosol inhaler TAKE 2 PUFFS BY MOUTH EVERY 4 HOURS NEEDED-M UST SCHEDULE APPT FOR REFILLS 2024 active Not Available Not Available Not Avai lable lisinopri l 40 mg tablet TAKE 1 TABLET BY MOUTH EVERY DAY 02/18 completed Not Available Not Available Not Available ondansetr on 4 mg disintegr ating tablet TAKE 1 TABLET BY MOUTH EVERY 8 HOURS NEEDED FOR NAUSEA AND VOMITING 02/18 completed Not Available Not Available Not Available fluticaso ne propionat e 50 mcg/actua tion nasal spray,asael pension 1 spray each nostril daily as needed 07/20 completed Not Available Not Available Not Available divalproe x 125 mg capsule,d elayed release sprinkle TAKE 2 CAPSULES BY MOUTH TWICE A DAY 10/25 completed Not Available Not Available Not Available dicyclomi ne 10 mg capsule Take 1 capsule 3 times a day by oral route with meals. 02/23 completed Not Available Not Available Not Available loratadin e 10 mg tablet Take 1 tablet by mouth daily 07/09 completed prn Not Available Not Available Not Available amoxicill in 875 mg-potass ium clavulana te 125 mg tablet TAKE 1 TABLET BY MOUTH EVERY 12 HOURS FOR 10 DAYS 01/31 completed Not Available Not Available Not Available oxycodone 5 mg tablet TAKE 1 TO 2 TABS NEEDED EVERY 4 HOURS FOR PAIN. MAX OF 6 TABS IN 24HRS. 03/16 completed Not Available Not Available Not Available neomycin- polymyxin -hydrocor t 3.5 mg-10,000 unit/mL-1 % ear drops,asael p active Not Available Not Available Not Available enoxapari n 40 mg/0.4 mL subcutane ous syringe INJECT 40 (FORTY) MG SUBCUTAN EOUSLY ONCE DAILY FOR 28 DAYS POST-OP 02/18 completed Not Available Not Available Not Available nitrofura ntoin monohydra te/macroc rystals 100 mg capsule 09/25 completed Not Available Not Available Not Available lactulose 10 gram/15 mL oral solution TAKE 20 ML BY MOUTH TWICE A DAY NEEDED FOR CONSTIPA TION active Not Available Not Available No t Available Symbicort 80 mcg-4.5 mcg/actua tion HFA aerosol inhaler inhale 2 puffs by mouth twice a day 2017 active Not Available Not Available Not Avai lable Humalog KwikPen (U-100) Insulin 100 unit/mL subcutane ous INJECT PER LOW DOSE SLIDING SCALE PROTOCOL PROVIDED BY 02/18 completed Not Available Not Available Not Available omeprazol e 20 mg tablet,de layed release Take 1 tablet every day by oral route. 07/07 completed Not Available Not Available Not Available Dulera 100 mcg-5 mcg/actua tion HFA aerosol inhaler INHALE 2 PUFFS BY MOUTH TWICE A DAY 07/25 completed Not Available Not Available Not Available Probiotic 06/23 completed Not Available Not Available Not Available OneTouch Verio test strips USE TO TEST 4 TIMES A DAY 02/18 completed Not Available Not Available Not Available lactulose 10 gram/15 mL (15 mL) oral solution take 20mL PO twice a day as needed for constipa tion 2022 active Linzess needs prior auth, will use this med while waiting Not Available Not Available Not Available Jardiance 10 mg tablet TAKE 1 TABLET BY MOUTH EVERY DAY 02/18 completed Not Available Not Available Not Available naltrexon e 8 mg-buprop ion 90 mg tablet,ex tended release 1 tab PO qam x1wk, then 1 tab PO bid x1wk, then 2 tabs PO qam and 1 tab PO qpm x1wk; then 2 tabs PO BID 07/21 completed did not start Not Available Not Available Not Available OneTouch Verio Flex Meter TEST 4 TIMES A DAY 02/18 completed Not Available Not Available Not Available Proctosol HC 2.5 % topical cream perineal applicato r APPLY A THIN LAYER TO THE AFFECTED AREA(S) BY TOPICAL ROUTE 2-4 TIMESDAI LY 07/09 completed Not Available Not Available Not Available Linzess 72 mcg capsule Take 1 capsule every day by oral route. 02/17 completed Not Available Not Available Not Available TRUEplus Pen Needle 32 gauge x 5/32 USE 4 TIMES A DAY 02/18 completed Not Available Not Available Not Available fluticaso ne 113 mcg-salme terol 14 mcg/actua tion breath activated powdr inhale 1 puff by mouth twice a day 09/09 completed Not Available Not Available Not Available OneTouch Delica Plus Lancet 33 gauge USE TO TEST 4 TIMES A DAY 02/18 completed Not Available Not Available Not Available Airsupra 90 mcg-80 mcg/actua tion HFA aerosol inhaler INHALE 2 INHALATI ONS BY INHALATI ON ROUTE NEEDED, FOR ASTHMA, MAX OF 12/24 HR. active Not Available Not Available No t Available Vitals Date Recorded Systolic And Diastolic Provider Name and Address Organization Details Last Updated DateTime 05/26/2023 140/90 mm[Hg] HEATHER Donahue Attn: Accounting,[address] [place], [address], [place] 05/26/2023 14:36:31 Date Recorded Body height Body mass index (BMI) Body weight Systolic And Diastolic Provider Name and Address Organization Details Last Updated DateTime 05/26/2023 162.56 cm 36.2 kg/m2 46435.99 g 160/98 mm[Hg] Maranda Gonzalez Regulo [place] 05/26/2023 14:20:59 Date Recorded Body height Body mass index (BMI) Body weight Systolic And Diastolic Provider Name and Address Organization Details Last Updated DateTime 06/22/2023 162.56 cm 36.4 kg/m2 60718.87 g 158/90 mm[Hg] Maranda Gonzalez Regulo [place] [facility] 06/22/2023 16:38:18 Date Recorded Systolic And Diastolic Provider Name and Address Organization Details Last Updated DateTime 09/16/2023 138/74 mm[Hg] Stephanie Wasserman APN, [employer] Attn: Accounting,[address] [place], [address], [place] [facility] [place] 09/16/2023 11:49:46 Date Recorded Body height Body mass index (BMI) Body weight Oxygen saturation Oxygen saturation in Arterial blood by Pulse oximetry Heart rate Respiratory rate Body temperature Systolic And Diastolic Provider Name and Address Organization Details Last Updated DateTime 162.56 cm 36.4 kg/m2 43469.8 6 g 97 % 97 % 73 /min 16 /min 97.3 [degF] 145/92 mm[Hg] Jessica Tran MA [facility] 4 11:08:27 Date Recorded Body height Body mass index (BMI) Body weight Body temperature Oxygen saturation Oxygen saturation in Arterial blood by Pulse oximetry Heart rate Respiratory rate Systolic And Diastolic Provider Name and Address Organization Details Last Updated DateTime 5 162.56 cm 35.5 kg/m2 63584.1 8 g 97.8 [degF] 95 % 95 % 85 /min 16 /min 179/109 mm[Hg] Pascale Pandya MA [facility] 5 16:41:57 Date Recorded Systolic And Diastolic Provider Name and Address Organization Details Last Updated DateTime 02/01/2024 128/88 mm[Hg] Stephanie Wasserman APN, JANINE Attn: Accounting,[address] [place], [address], [facility] 02/01/2024 17:31:44 Date Recorded Body height Body mass index (BMI) Body weight Oxygen saturation Oxygen saturation in Arterial blood by Pulse oximetry Heart rate Respiratory rate Body temperature Systolic And Diastolic Provider Name and Address Organization Details Last Updated DateTime 4 162.56 cm 37 kg/m2 67975.2 3 g 97 % 97 % 81 /min 16 /min 98.1 [degF] 134/90 mm[Hg] Jessica Tran MA [facility] 4 16:54:37 Social History Question Answer Notes LastModified by Organizat ion Details LastModified Time Tobacco Smoking Status Current Every Day Smoker Pt has been off and on. 10/25/24 Pascale Pandya MA [facility], [facility] 10/25/2024 16:46:10 Do You Have An Advance Directive? No Information not available 07/10/2019 Are You Blind Or Do You Have Difficulty Seeing? No Information not available 09/25/2020 What Is Your Level Of Caffeine Consumption? Moderate Information not available 02/18/2023 How Much Tobacco Do You Chew? None Information not available 09/09/2018 In The 14 Days Before Symptom Onset, Have You Had Close [facility] While That Case Was Ill? No Information not available 01/15/2020 In The 14 Days Before Symptom Onset, Have You Had Close Contact With A Person Who Is Under Investigation For COVID-19 While That Person Was Ill? No Information not available 01/15/2020 Have You Been To An Area Known To Be High Risk For COVID-19? No Information not available 06/06/2020 Are You Deaf Or Do You Have Serious Difficulty Hearing? No Information not available 09/25/2020 What Type Of Diet Are You Following? REGULAR Protein Diet Information not available 02/18/2023 Which Illicit Or Recreational Drugs Have You Used? Marijuana Information not available 07/10/2019 Are There Any Guns Present In Your Home? Yes Information not available 07/10/2019 Hard Of Hearing Or Deaf In One Or Both Ears? Yes Bilateral Hard Of Hearing Information not available 06/06/2020 Legally Blind In One Or Both Eyes? No Information not available 06/06/2020 Do You Have A High School Diploma Or Higher Education? No Information not available 06/06/2020 Do You Sometimes Have To Miss Your Medical Appointments Due To Difficult Getting Transportation? Yes Information not available 06/06/2020 Do You Feel Unfairly Treated Due To Things Such As Race, Age, Gender, Disability Or Some Other Reason? No Information not available 06/06/2020 Do You Feel Physically And Emotionally Safe While Living At Home? Yes Information not available 06/06/2020 Do You Feel Physically And Emotionally Safe In Your Neighborhood Or Other Public Places? Yes Information not available 06/06/2020 Marital Status Single Informati on not available 03/17/2016 What Was The Date Of Your Most Recent Tobacco Screening? 10/25/2024 Information not available 10/25/2024 Performs Monthly Self-breast Exam? No Information not available 07/07/2016 What Is Your Relationship Status? Single Information not available 09/25/2020 Do You Use Your Seat Belt Or Car Seat Routinely? No Information not available 09/25/2020 Seat Belts Used Routinely No Information not available 07/10/2019 Are You Sexually Active? Yes Information not available 05/09/2021 Smoke Alarm In Home Yes Information not available 07/10/2019 Do You Have Smoke And Carbon Monoxide Detectors In Your Home? Yes Information not available 09/25/2020 At What Age Did You Start Smoking Tobacco? 10 Information not available 06/06/2020 Are You Passively Exposed To Smoke? No Information not available 09/25/2020 How Much Tobacco Do You Smoke? 1 PPD Quit [email or web address] Information not available 02/01/2024 General Stress Level Medium Information not available 11/11/2016 Do You Use Sunscreen Routinely? No Information not available 07/10/2019 Has Tobacco Cessation Counseling Been Provided? Yes [email or web address] Information not available 07/25/2018 On What Date Was Tobacco Cessation Counseling Provided? 10/25/2024 Information not available 10/25/2024 How Many Years Have You Smoked Tobacco? 29 09/24/21 [email or web address] Information not available 09/24/2021 Sex: Female Functional Status Question Answer Note LastModified by Organizat ion Details LastModified Time Do you use any illicit or recreational drugs? Yes marijuana Information not available 09/25/2020 Do you or have you ever used any other forms of tobacco or nicotine? No Information not available 09/25/2020 What is your level of alcohol consumption? None [email or web address] Information not available 05/24/2014 Do you or have you ever used smokeless tobacco? Never used smokeless tobacco Information not available 07/10/2019 Are you currently employed? Yes Information not available 09/25/2020 Are you able to care for yourself independently? 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 Never used electronic cigarettes Information not available 07/10/2019 What is your exercise level? Occasional work [email or web address] Information not available 05/28/2020 Mental Status Question Answer Note LastModified by Organization D etails LastModified Time Do you feel stressed (tense, restless, nervous, or anxious, or unable to sleep at night)? [id number] [email or web address] Information not available 02/18/2023 Family History Relationship Description Onset Age of this Age Resolved Age Notes LastModified by Organization Details LastModified Time Mother History of cerebrovascu lar accident [email or web address] Not available 16:03:21 Mother Diabetes mellitus [email or web address] Not available 2015 16:03:21 Mother Essential hypertension [email or web address] Not available 16:03:22 Mother Hyperlipidem ia [email or web address] Not available 2015 16:03:22 Father Heart disease [email or web address] Not available 2015 16:03:22 Father Essential hypertension [email or web address] Not available 16:03:22 Father Hyperlipidem ia [email or web address] Not available 2015 16:03:22 Sister Asthma [email or web address] Not available 0 12/27/2015 16:03:22 Brother Asthma [email or web address] Not available 12/27/2015 16:03:22 Medical History Condition Response Coronary Artery Disease N Other N Atrial Fibrillation N High Blood Pressure Y Thyroid Problems N Kidney or Bladder Problems N GI Problems Y Depression Y COPD N Blood Clots N Eating Disorder N Skin Problems Y Anemia N Heart Attack (MN) N Diabetes N Anxiety Disorder Y Muscle, Joint, or Bone Problems N Seizures/Epilepsy N Acid Reflux (GERD) Y Cancer N Stroke Y Asthma Y Allergies Y ADHD N Substance Abuse N High Cholesterol Y Hepatitis N Liver Disease N Schizophrenia N Headaches Y Osteoporosis N Heart Failure N Gynecological History Statement/Question Response Abnormal Pap N Date of Last Mammogram Flow Heavy Date of LMP 01/30/2024 On BCP's at Conception? N HPV Vaccine N Duration of Flow (days) 14 Current Control Method Tubal Ligat ion Frequency of Cycle (Q days) 20 Sexually Active? Y Menses Monthly Y Date of Last Pap Smear 05/26/2023 Sexual Problems? Yes LMP Definite Obstetrics History GPAL:G 5 P 0 1 4 1 Type Value Spontaneous 4 Premature 1 Living 1 Total 5 Immunizations Vaccine Type Date Status Note Provider Charles whitmore and Address Organization Details Recorded Time Tdap 08/30/2021 completed Stephanie Wasserman APN, [employer] Attn: Accounting,[address], [place], [address], [facility] 03/16/2022 12:05:54 Tdap 08/09/2012 completed Stephanie Wasserman APN, FNP-C Attn: Accounting,[address], [place], [address], [facility] 03/16/2022 12:05:54 Past Encounters Encounter ID Performer Location Encounter Start Date Encounter Closed Date Diagnosis/Indication Diagnosis SNOMED-CT Code Diagnosis ICD10 Code Diagnosis IMO Codes Diagnosis Note [id number] MD Tomás Noriega (Adult Med) [address] [place] [address] 05/24/2014 13:59:01 05/24/2014 15:23:17 Right lower quadrant pain [id number] Patient went to ER on 05/19/14.Ct abdomen showed Cholelithi asis without cholecysti tis and small fat containing umbilical hernia. amylase,li pase and LFTs were normal.Pat ient received Ciprofloxa yudith and Tramadol. will refer to surgery. Essential hypertension 18102966 Blood pressure is uncontroll ed likely because of pain. Continue same medication s. Hyperlipidemia 47225945 Co ntinue simvastati n. Morbid obesity 729601119 a dvised 1500 calory low fat,low cholestero l,low carb diet ,regular exercise and weight reduction. Tobacco user 380072855 Adv ised patient to quit smoking. [id number] MD Tomás Noriega (Adult Med) [address] [place] [address] 12/06/2014 16:14:30 12/06/2014 17:17:13 Essential hypertension 97691076 Blood pressure controlled . Continue same medication s. Hyperlipidemia 56110789 Co ntinue simvastati n. Advised patient to do the labs. Migraine 06473049 Headache s controlled with Depakote. Advised patient to do the Valproic acid levels Morbid obesity 079915462 a dvised 1500 calory low fat,low cholestero l,low carb diet ,regular exercise and weight reduction. [id number] MD Tomás Noriega (Adult Med) [address] [place] [address] 05/07/2015 16:29:41 05/08/2015 17:01:28 Essential hypertension 53411440 I10 Blood pressure controlled . Continue same medication s. Hyperlipidemia 76507926 E78.2 Continue simvastati n. LDL well controlled . Morbid obesity 102591804 E66.01 advised 1500 calory low fat,low cholestero l,low carb diet ,regular exercise and weight reduction. Tobacco user 062400450 Z 72.0 Advised patient to quit smoking. Migraine 33096331 G43.90 9 Headaches controlled with Depakote. Advised patient to do the Valproic acid levels [id number] MD Camden Cherry ([facility]) [address] [facility] [place] [address] 08/20/2015 10:34:57 08/26/2015 11:02:34 Vaginal discharge 001747573 N89.8 Hidradenitis 73015337 L7 3.2 [id number] MD Camden Cherry ([place] [address]) [address] [place] [address] 09/10/2015 15:51:03 09/11/2015 09:31:38 Gynecologic examination 86791191 Z01.419 Tobacco user 788578345 Z 72.0 [id number] RUBEN Manrique Cuttyhunk (Adult Med) [address] [place] [address] 11/29/2015 15:45:29 11/29/2015 17:08:10 Pneumonia 119769730 J18.9 Tobacco user 432532033 Z 72.0 Candidiasis of vagina 72 543201 B37.3 Gastroesop hageal reflux disease 364667944 K21.9 [id number] TRIPP Manrique Cuttyhunk (Adult Med) [address] [place] [address] 12/27/2015 15:49:06 12/30/2015 16:56:26 Pneumonia 258446021 J18.9 Tobacco user 258420664 Z 72.0 [id number] RUBEN Manrique Cuttyhunk (Adult Med) [address] [place] [address] 02/14/2016 13:48:07 02/14/2016 17:22:17 Pneumonia 619420115 J18.9 Vaginal discharge 861319 006 N89.8 [id number] TATYANA Horton (Adult Med) [address] [place] [address] 03/17/2016 13:58:52 03/19/2016 16:46:52 Essential hypertension 68229856 I10 mildly elevated, cont current medication s; discussed weight loss, low salt diet Hyperlipidemia 63547215 E78.5 cont statin, repeat lipids at f/u. discussed 10lb weight loss by next follow up appt and reducing fatty/frie d foods, setting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 surgery on 03/10/22 Spasm of back muscles 20 8726044 M62.830 prn muscle relaxer [id number] MD Tomás HARO ([facility]) [address] [place] [address] 12/01/2022 16:43:22 12/02/2022 10:31:30 Exposure to Streptococcus 097751565 Z20.818 H66.92 J02.0 - Discussed supportive care at home with emphasis on maintainin g adequate hydration - Provided anticipato ry guidance for when to call office and/or seek emergency treatment - Rapid Strep negative; f/u strep culture but will treat empiricall y given symptoms consistent with Strep throat - Follow up as needed Body mass index 30+ - obesity 176235265 Z68.37 - History of gastric sleeve- Continue bariatric diet Candidal vulvovaginitis 65666873 B37.31 - Gets yeast infection after Abx; prescribed one-time dose of fluconazol e to treat once Abx are completed [id number] MD Tomás Romeo (Adult Med) [address] [place] [address] 02/18/2023 16:26:29 02/23/2023 12:36:23 Essential hypertension 33085533 I10 no longer on lasix or lisinopril , per surgeon, will cont with beta smita for now, cont metoprolol 50 mg bid advised low salt diet Hyperlipidemia 06028124 E78.5 chck lab-wantin g to stop statin, diet changes advised Vitamin D deficiency 347 27565 E55.9 low , start high dose weekly replacemen t Type 2 nicolas betes mellitus without complication 490254932 E11.9 a1c 6.6check lab Gastroesop hageal reflux disease without esophagitis 022682479 K21.9 controlled on ppi Migraine 61577350 G43.90 9 well controlled on divalproex 500 mg Chronic constipation 236 502212 K59.09 pt requesting refill, no diverticul itis flare ups recently Mood disorder 87610969 F 38 dwp scores, pt reports a lot of stress with her job but otherwise doing well [id number] Jovan Jacob MD [place] [address] [facility] [address] [place] [address] 05/26/2023 13:59:25 05/27/2023 09:21:43 Routine gynecologic examination done 6659028323 9101 Z01.419 -Educated on the importance of SBE and awareness. -Discussed the importance of cervical cancer screenings -Educated osteoporos is prevention including calcium rich foods, weight bearing exercise. -Discussed the importance of exercise. -Nutrition discussed and the importance of a diet rich in fruits, vegetable, whole grains, and lean proteins. -Counseled regarding prevention of STD's and screening options, condom use and prevention . -Advised avoidance of tobacco, alcohol, and drugs. -Discussed sun safety and the importance of sunscreen. Abnormal u terine bleeding 8501026007 9100 N93.9 Labs ordered and pelvic US ordered. Discussed management options not interested in medical management and desires hysterecto my. Discussed need for EMB and pt educated on risks of emb. Pt verbalized understand ing and pt scheduled. Pt would also like to be referred to [facility] to discuss hysterecto my and surgical removal of genital warts. Referral ordered. pt to follow up for here and then follow up with [facility] Screening mammography 24 732094 Z12.31 Patient educated on the importance of annual breast cancer screenings with mammograph y. Patient given order to schedule mammogram. Dyspareunia 45401578 N94 .10 Pap with screening completed. Pelvic US ordered. PFPT ordered. Follow up with [facility] High risk sexual behavior 729857513 Z72.51 sample collected and sent to lab. Counseled on safe sex, condom use and STD precaution s discussed screening completed per patient's request Essential hypertension 94436480 I10 Pt notified BP elevated. pt reports just took her HTN medication . Pt educated on lifestyle modificati ons and follow up with PCP for bp check in 2 weeks. Body mass index 30+ - obesity 800014955 Z68.36 Pt educated on risks and importance of lifestyle modificati ons. Pt reports will continue to follow up with PCP. Positive s creening for depression on PHQ-9 (Patient Health Questionnaire 9) 3664938537 28278 Z13.31 Discussed management options. Pt not interested in medication . Pt opts to continue to follow up with her counselor. Genital warts 019301104 A63.0 Discussed management options. PT opts for [facility] referral for removal. Pt educated on importance of follow up. [id number] Jovan Jacob MD [place] [address] [facility] [address] [place] [address] 06/22/2023 16:21:42 06/23/2023 08:58:08 Abnormal uterine bleeding 8209141602 9100 N93.9 EMB completed. Pt educated on after care and notified to call office if issues occur. pt has appointmen t scheduled with [facility] for follow up. Essential hypertension 85973723 I10 Pt notified BP elevated. pt reports just took her HTN medication . Pt educated on lifestyle modificati ons and follow up with PCP for bp check in 2 weeks. Genital warts 925952766 A63.0 Discussed management options. PT already referred to [facility] referral for removal. Pt educated on importance of follow up. [id number] MD Tomás Romeo (Adult Med) [address] [place] [address] 09/16/2023 10:54:31 09/23/2023 14:00:10 Dysuria 83111812 R30.9 dwp results will send for culture Essential hypertension 46647931 I10 no longer on lasix or lisinopril , per surgeon, will cont with beta smita for now, cont metoprolol 50 mg bid advised low salt diet Acute sinusitis 28603082 J01.90 has been almost 2 weeks, taking antihistam darius and not improved, now pressure and cough;will send augmentin Acute bronchitis 5689955 2 J20.9 cont inhaler prn Candidiasis of vagina 72 220077 B37.31 prone to yeast infections with abx use Constipation 80191244 K5 9.00 prn lactulose Obesity 425381844 E66.9 advised low fat, low cholestero l diet, regular exercise and weight reduction. Smoker 15505321 F17.200 Smoking cessation encouraged . [id number] MD Tomás Romeo (Adult Med) [address] [place] [address] 02/01/2024 16:47:10 02/04/2024 18:03:20 Essential hypertension 30234077 I10 no longer on lasix or lisinopril , per surgeon, will cont with beta smita for now, cont metoprolol 50 mg bid advised low salt diet Constipation 99241699 K5 9.00 hx of endometrio sis and diverticul itisprn lactulose Obesity 520046467 E66.9 advised low fat, low cholestero l diet, regular exercise and weight reduction. Smoker 82973037 F17.200 Smoking cessation encouraged .do not resume! Hyperlipidemia 67062612 E78.5 check lab-wantin g to stop statin, diet changes advised Type 2 nicolas betes mellitus without complication 193967041 E11.9 last a1c 6.6, no longer on medsdue to check lab Gastroesop hageal reflux disease without esophagitis 125936307 K21.9 controlled on ppi [id number] MD Tomás Romeo (Adult Med) [address] [place] [address] 10/25/2024 16:26:55 10/31/2024 11:24:33 Asthma 281982512 J45.20 dwp prn albuterol use reviewed AAP Spasm of back muscles 20 6769683 M62.830 prn muscle relaxer Essential hypertension 48943878 I10 no longer on lasix or lisinopril , per surgeon, will cont with beta smita for now, cont metoprolol 50 mg bidelevate d today due to being out of med, will send refill Hyperlipidemia 11975293 E78.5 check lab-wantin g to stop statin, diet changes advised Vitamin D deficiency 347 16574 E55.9 low , start high dose weekly replacemen t Gastroesop hageal reflux disease without esophagitis 176674280 K21.9 controlled on ppi Type 2 nicolas betes mellitus 19321439 E11.9 22806677 last a1c 6.6, no longer on meds5.2 06/07/24 Obese class II 052229126 1 [address] E66.812 0185162124 advised low fat, low cholestero l diet, regular exercise and weight reduction. Overweight 198409762 E66 .3 advised low fat, low cholestero l diet, regular exercise and weight reduction. Health Concerns Section Related Observation LastModified by Organization Detai ls LastModified Time None Recorded Concern Status LastModified by Organization Details LastModified Time None Recorded Advance Directives Directive N: Payers Insurance Date Sequence Insurance Name Policy Number Policy Lindsey Covered Member ID Lindsey Member ID Guarantor Name 06/01/2023 2 *SELF PAY* Porfirio Toledo 02/01/2024 1 [facility]LY [facility] (MEDICAID HMO) [id number] Kat Toledo [id number] Kat Toledo 02/01/2024 1 [place] [facility] PUBLIC AID Kat Toledo [id number] Kat Toledo 10/31/2024 1 [facility]LY [facility] (MEDICAID HMO) [id number] Kat Toledo [id number] Kat Toledo Notes Date Note Type Note Provider Name and Address Organization Details Recorded Time 4 text/html Annual GYNReported by PatientGenitourinary symptomsFor menstrual cycle, patient reportssevere dysmenorrhea,menorrhagia, andbleeding lasts more than 7 days. For urinary symptoms, patient reportsno hematuriaandno incontinence. For vulva, patient reportsno genital lesion. For vagina, patient reportsnormal vaginal discharge.Breast symptomsFor breast, patient reportsno breast pain,no breast lump, andno nipple discharge.ContraceptionFor current contraception, patient reportsmonogamous relationship,tubal ligation, andrequests testing for sexually transmitted infections.Endocrine symptomsFor sexual complaints, patient reportsno sexual complaints,no pain during intercourse, andnormal libido. For menopausal symptoms, patient reportsno menopausal symptomsandnormal vaginal lubrication.Psychological symptomsFor psychological symptoms, patient reportsno depression,no anxiety, andno pmdd.Preventative measuresFor preventive measures, patient reportsencourage self breast examination,encourage regular exercise,encourage no tobacco use,encourage regular mammograms starting age 40, andfollowed with q3 year pap smear and high risk hpv typing. Abnormal BleedingReported by PatientHPIFor associated symptoms, patient reportsdysmenorrheabut reportsno pelvic pain,no abdominal pain,no dyspareunia,no fatigue,no dizziness,no anemia/iron supplements,no shortness of breath,no cp/palpitations,no bloating,no change in bowel function,no urinary symptoms,no pms,no vaginal discharge, andno vaginal itching/irritation. For onset/timing, patient reportspast 6+ cycles. For duration, patient afpbpoq09-45 days/month. For quality, patient reportsheavy. For severity, patient reportschanging pad/tampon every 1-2 hours. Patient is here for well women exam. Patient has complaints of heavy menstrual bleeding, painful menstrual cramps, and pain with intercourse for the last 10 years. Pt reports she had uterine ablation over 5 years ago for management of heavy menses but menses did not lighten. Pt reports menses occurs every 10-20 days and lasts 7-15 days. Pt also has history of genital warts and would like to discuss getting them surgically removed. PHQ score 12. Pt reports established with counselor. Pt reports good support system. Pt denies any other complaints. Emma Mota NP-C Attn: Accounting,[address] [place], [address], [facility] 05/26/2023 15:36:11 4 text/html ROS as noted in the HPI Pt thinks she has a UTI and pain in her lower area. She is also having pressure, the urgency to go but not really going like she knows she needs to, lower back pain all across her back, and stinging bad when she does use the bathroom. Pt also has a sinus flair up when she was in [place] for 10 days. Started on day 2 of being there. She does have a cough that she feels more pressure with and can't really get anything up. She feels it has gotten worse since she's back. Stephanie Wasserman APN, [employer]-C Attn: Accounting[address] [facility], [place], [address], [facility] 09/20/2023 18:05:42 4 text/html pt here for follow up,planning to have hysterectomy in the next month or two, endometriosis increasing bleeding and constipation Stephanie Wasserman APN, [employer] MECH[employer]-C Attn: Accounting,[address], [place], [address], [facility] 02/01/2024 17:34:31 5 text/html pt here for follow up,No new concerns todayStill losing weight,Following with specialists regarding HPVNo recent diverticulitis flares Stephanie Wasserman APN, [employer]-C Attn: Accounting,[address], [place], [address], [facility] 10/29/2024 19:18:03 OBGyn Episode No OBEpisode recorded.
--- OUTSIDE RECORDS SUMMARY | 2025-03-08 13:04 | XMS_ITS | Clinical Summary ---
Author Organization [facility] Address [address] [place] [address] Care Team Providers Care Manufacturing Process Technician Name Role Phone Sherlyn Siddiqui RN Unavailable Unavailab Stephanie Feliciano NP Primary Care Provider [phone] Lashawn Moore MD Unavailable [phone] Allergies Active Allergy Reactions Criticality Noted Date Comments Naproxen Vomiting Medium Pregabalin Hallucinations Medium 08/11/2017 Bad dreams Medications metoprolol (LOPRESSOR) 50 mg tablet Take 1 tablet (50 mg total) by mouth 2 (two) times a day 06/30/19 18 Active omeprazole (PriLOSEC) 20 mg capsule Take 2 capsules (40 mg total) by mouth every morning 06/30/19 18 Active cetirizine (ZyrTEC) 10 mg tablet Take 1 tablet (10 mg total) by mouth every morning Active psyllium (METAMUCIL) powder Take 2 packets by mouth 2 (two) times a day as needed Active cyclobenzaprine (FLEXERIL) 10 mg tablet Take 1 tablet (10 mg total) by mouth nightly as needed for muscle spasms 12 tablet 09/20/19 19 Active albuterol 2.5 mg /3 mL (0.083 [...] lactulose 0.67 gram/mL solution as needed (constipation) 02/19/20 23 Active ferrous sulfate 325 mg (65 mg of elemental iron) tablet Take 1 tablet (325 mg total) by mouth daily with breakfast 30 tablet 11 06/12/19 25 026 Active acetaminophen (TYLENOL) 500 mg tabletIndication s:Pain Take 2 tablets (1,000 mg total) by mouth every 6 (six) hours as needed for pain 60 tablet 06/22/19 25 Active polyethylene glycol (MIRALAX) 17 gram/dose bulk powder Take 17 g by mouth daily 510 g 06/22/19 25 Active silver sulfadiazine (SILVADENE, SSD) 1 % cream Apply topically daily To perineum 50 g 06/22/19 25 Active Additional Information Patient not taking.Reported on 10/26/2024 nicotine polacrilex (NICORETTE) 2 mg gum Chew 1 each (2 mg total) as needed for smoking cessation 100 each 3 10/18/19 25 Active sulfamethoxazole -trimethoprim (BACTRIM) 800-160 mg per tablet Take 1 tablet by mouth 2 (two) times a day for 7 days smx-tmp DS (BACTRIM) 800-160 mg tabs 14 tablet 02/03/20 25 025 Active Problems Problem Noted Date Diagnosed Date [...] improved to 9.5 Type [address] of insulin 08/31/2021 Assessment & Plan (09/01/2021 7:49 AM CDT): Patient home medications metformin --> metformin currently on hold patient placed on sliding scale GERD (gastroesophageal reflux disease) 2 Assessment & Plan (09/01/2021 7:45 AM CDT): Continue Protonix 40 mg Branch retinal vein occlusio n of both eyes with macular edema 01/30/2020 Overview (02/06/2020): s/p sectoral PRP OS, has been LTFU since 2015. Assessment & Plan (02/06/2020 12:02 PM CDT): [...] sectoral PRP OS, has been LTFU since 2015. New vitreous hemorrhage OS. Inject anti-VEGF left [...] daily Hypercholesterolemia Overview (08/31/2021): High cholesterol; Comments: RENZO 06/05/2014 - Assessment & Plan (09/01/2021 7:46 [...] Encounters Date Type Department Care Team Description 02/08/2025 Results Follow-Up [facility] Emergency Department [address] [place] [address] Gómez Anaya MD Urine culture Urine 02/02/2025 1:39 AM CDT - 02/02/2025 2:26 AM CDT Emergency [facility] Emergency Department [address] [place] [address] Cystitis (Primary Dx) Discharge Disposition: Discharge to home or self care from Last 3 Months Immunizations Immunization Administration Dates Next Due Tdap 08/30/2021,08/09/2012 Surgical History Surgery Date Site/Laterality Comments CERVICAL FUSION cervical fusion OTHER SURGICAL HISTORY D & C x 4 ABLATION Ablation TONSILLECTOMY Tonsillectomy TUBAL LIGATION tubal ligation SECTION section CHOLECYSTECTOMY Lap Cholecystectomy COLONOSCOPY Medical History Medical History Date Comments Hypercholesterolemia High choles terol; Comments: RENZO 06/05/2014 - Hypertension Hypertension Hypertension Diabetes mellitus Awareness under anesthesia pt re ports waking [...] making you feel afraid or unsafe? Denies 02/01/2025 Comments No Sex and Gender Information Value Date Recorded Sex Assigned at Not on file Legal Sex Female 3:11 AM ASSISTANT PRODUCT MANAGER Gender Identity Not on file Sexual Orientation Not on file Obstetrics History Para Term AB IAB SAB Ectopic Multiple Livin g Live Births 1 Date Outcome GA Total Labor Labor/2nd/3rd Weight Sex Type Anes PTL Libby A1 A5 Name Clin Last Filed Vital Signs Vital Sign Reading Time Taken Comments Blood Pressure 170/109 02/02/2025 2:19 AM CDT erp aware Pulse 62 02/02/2025 2:19 AM CDT Temperature 36.8 C (98.3 F) 02/01/2025 11:06 PM CDT Respiratory Rate 18 02/01/2025 11:06 PM CDT Oxygen Saturation 99% 02/02/2025 2:19 AM CDT Inhaled Oxygen Concentration - - Weight 86.2 kg (190 lb) 02/01/2025 11:06 PM CDT Height 165.1 cm (5' 5) 02/01/2025 11:06 PM CDT Body Mass Index 31.62 02/01/2025 11:06 PM CDT Plan of Treatment Health Maintenance [...] Discontinued 11/10/2024 Medical Devices Implanted Type Area Logistics/Shipper Device Identifier Shelf Expiration Date Model / Serial / Lot Screw Screw Neck Procedures Procedure Name Priority Date/Time Associated Diagnosis Comments URINALYSIS, MICROSCOPIC ONLY STAT 02/02/2025 1:43 AM CDT URINE CULTURE STAT 02/02/2025 1:43 AM CDT URINALYSIS AND REFLEX TO MICROSCOPIC AND CULTURE STAT 02/02/2025 1:43 AM CDT PAP WITH REFLEX TO HIGH RISK HPV Routine 11/10/2024 1:19 PM CDT Condyloma HEPATITIS C ANTIBODY Routine 10/17/2024 4:40 PM CDT Routine screening for STI (sexually transmitted infection) EGFR Routine 06/07/2024 2:42 PM ASSISTANT PRODUCT MANAGER Preoperative testing POCT HEMOGLOBIN A1C Routine 06/07/2024 1 :27 PM ASSISTANT PRODUCT MANAGER LIPID PANEL Routine 07/13/2023 2:33 PM CDT from Last 3 Months or Most Recently Relevant to Health Maintenance Results * (ABNORMAL) Urinalysis reflex to microscopic and culture Urine (02/02/2025 1:43 AM CDT) Color, ur Dark-Cincinnatus Clarity, ur Clear Clear [facility] ([place]) Specific gravity, ur 1.027 1.003 - 1.030 [facility] ([place]) pH, urine 5.5 [facility] ([place]) Comment: Interpretive Data U rine pH is affected by diet, medications, systemic acid-base disturbances, and renal tubular function. pH may affect urinary stone formation. For example, urine pH below 6.0 may help reduce the tendency for calcium phosphate stones and pH greater than 6.0 may reduce the tendency for uric acid stone formation. Source: [employer] Current Interpretive Data was last revised on 2017 Protein, ur ql Trace Negative [facility] ([place]) Glucose, ur ql Negative Negative [facility] ([place]) Ketones, ur Negative Negative [facility] ([place]) Bilirubin, ur 1+(A) Negative [facility] ([place]) Blood, ur 1+(A) Negative [facility] ([place]) Urobilinogen, ur 2.0(A) <2.0 mg/dL [facility] ([place]) Nitrite, ur Positive(A) Negative [facility] ([place]) Leukocyte esterase, ur 2+(A) Negative [facility] ([place]) UA reflex comment Reflex to microscopic UA will be performed. [facility] ([place]) Urine 02/02/2025 1:43 AM CDT 02/02/2025 1:53 AM CDT [facility] MICROBIOLOGY - GENERAL ORDE RABLES Final Result Performing Organization Address [facility] Co de Phone Number [facility] ([place]) [address] [facility] [place] [address] * (ABNORMAL) Urinalysis, microscopic only (02/02/2025 1:43 AM CDT) WBC, ur 21-50(A) 0 - 5 /HPF RBC, ur 0-2 0 - 2 /HPF [facility] Epithelial cells, squamous, ur 1-5 0 - 5 /HPF [facility] ([place]) Bacteria, ur 1+(A) [facility] ([place]) Mucous, ur Present(A) [facility] ([place]) Culture Reflex Comment Reflex to urine culture will be performed. [facility] ([place]) Urine 02/02/2025 1:43 AM CDT 02/02/2025 1:53 AM CDT [facility] URINE ORDERABLES Final Resu lt Performing Organization Address City/[facility]/ZIP Co de Phone Number [facility] ([place]) [address] [facility] [place] [address] * (ABNORMAL) Urine culture Urine (02/02/2025 1:43 AM CDT) Report Final Report: Greater than or equal to 100,000 colonies/mL of Escherichia coli Plus growth of clinically insignificant bacterial negar. (.) Comment:Testing performed by : [facility], [address] [place]., [address] Organism ESCHERICHIA COLI [facility] ([place]) Organism PLUS GROWTH OF CLINICALLY INSIGNIFICANT NEGAR. [facility] ([place]) Urine 02/02/2025 1:43 AM CDT 02/02/2025 5:58 AM CDT Narrative [facility] ([place]) - 02/04/2025 10:32 AM CDT Urine culture reflexed based upon urinalysis results. Testing performed by [facility] Microbiology Laboratory ([phone]) Organism Antibiotic Method Susceptibility Escherichia coli Ampicillin INTERPRETATION Susceptible Escherichia coli Cefazolin INTERPRETATION Susceptible Escherichia coli Nitrofurantoin INTERPRETATION Susceptible Escherichia coli Gentamicin INTERPRETATION Susceptible Escherichia coli Trimethoprim with Sulfamethoxazole IN TERPRETATION Susceptible Escherichia coli Meropenem INTERPRETATION Susceptible Escherichia coli Cefepime INTERPRETATION Susceptible Escherichia coli Ciprofloxacin INTERPRETATION Susceptible Escherichia coli Ceftazidime INTERPRETATION Susceptible Escherichia coli Ceftriaxone INTERPRETATION Susceptible Escherichia coli Piperacillin/Tazobactam INTERPRETATIO N Susceptible Escherichia coli Cephalexin INTERPRETATION Susceptible Escherichia coli Cefuroxime-axetil INTERPRETATION Susceptible Escherichia coli Cefdinir INTERPRETATION Susceptible us [facility] MICROBIOLOGY - GENERAL INÉS CALIX Final Result [facility] ([place]) [address] [facility] Department [place] [address] * Pap with reflex to High Risk HPV and Genotyping (Cytology Component) (11/10/2024 1:19 PM CDT) Thin prep (Pap test) 11/10/2024 1:19 PM CDT 11/13/2024 4:04 PM CDT Narrative PATHOLOGY [facility] - 11/20/2024 2:02 PM CDT EPIC results best viewed via link to PDF [facility] Elizabeth Boateng Laboratory of Surgical Pathology [address] [facility] [place] [address] Note to Patients: This report may contain [...] Gender: F : 1980 (Age: 44) Address: [address] [place] [id number] Hospital #: [id number] Service: UNKNOWN Location: Patient Type: [facility] SPECIMEN Taken: 11/10/2024 Received: 11/13/2024 Accessioned: 11/13/2024 Reported: 11/20/2024 Physician(s): Juani Ta M.D. FINAL INTERPRETATION SOURCE OF SPECIMEN Liquid based Thin Prep pap with Reflex HPV: STATEMENT OF ADEQUACY - Satisfactory for evaluation - Endocervical cells/transformation zone sample present GENERAL CATEGORIZATION: - Negative for squamous intraepithelial lesion or malignancy INTERPRETATION: - Shift in negar suggestive of bacterial vaginosis ml/11/20/2024 14:02 Daniella [...] clinical information and biopsy results as indicated. [facility] Clinical Laboratory Improvement Amendments (CLIA) mandate that cytologic and histologic results be correlated for laboratory manager quality systems & improvement standards. FOR ALL HIGH-GRADE CASES [...] determined by the Surgical Pathology Department at [facility] as part of an ongoing vice president quality assurance program and in compliance with federally mandated [...] determined by the Surgical Pathology Department of [facility]. It has not been cleared or approved by the U. S. Food and Drug Administration. Juani Ta MD LAB CYTOLOGY ORDERABLES Final Result [facility] 3rd Floor [place], [place] [phone] * Hepatitis C antibody Blood (10/17/2024 4:40 PM CDT) [facility] Hep C Ab Nonreactive Nonreactive Comment:Antibodies to HCV no t detected. Does NOT exclude the possibility of recent exposure to HCV. Current interpretive data was last revised on 22 Blood 10/17/2024 4:40 PM CDT 10/17/2024 6:58 PM CDT Maria Isabel Styles MD LAB MICROBIOLOGY - GENERAL ORDERABLES Final Result [facility] Department [place] [address] * eGFR (06/07/2024 2:42 PM ASSISTANT PRODUCT MANAGER) Pathologist [facility] eGFR >90 >=60 mL/min/1. 73 m2 Comment: [...] last reviewed 2021. Blood 06/07/2024 2:42 PM ASSISTANT PRODUCT MANAGER 06/07/2024 3:46 PM ASSISTANT PRODUCT MANAGER Debora Niño NP LAB BLOOD ORDERABLES Final Resul t Performing Organization Address City/[facility]/ZIP Co de Phone Number [facility] [place] [address] * POCT hemoglobin A1c (06/07/2024 1:27 PM ASSISTANT PRODUCT MANAGER) [facility] Hgb A1C, POC 5.2 4.0 - 5.6 % Est Average Gluc POC 103 mg/dL [facility] Comment: The ADA recommends reporting an estimated Average Glucose (eAG) with all Hemoglobin A1c results using the equation derived from a study of 507 normal and diabetic adults. Minority populations were underrepresented and children were not included. (Diabetes Care 31:2266-7262, 2008). The eAG is not equivalent to a fasting glucose. Blood 06/07/2024 1:27 PM ASSISTANT PRODUCT MANAGER 06/07/2024 1:27 PM ASSISTANT PRODUCT MANAGER Maria Isabel Styles MD POINT OF CARE TEST ORDERABLES Final Result [facility] [place] [address] * Lipid panel (07/13/2023 2:33 PM CDT) [...] 2017. Non-HDL Cholesterol 144 mg/dL [facility] ([place]) Comment: Interpretive Data Ages < or = [...] on 2017. Chol/HDL ratio 4 [facility] ([place]) Blood 07/13/2023 2:33 PM CDT 07/13/2023 2:39 PM CDT us Valeria Harris NURSE GENERAL DUTY LAB BLOOD ORDERABLES F inal Result [facility] ([place]) [address] [facility] Department [place] [address] from Last 3 Months or Most Recently Relevant to Health Maintenance Insurance [facility] [address] [place] [id number] [facility] Advance Directives For more information, please contact: [phone] * Full Code (Latest Code Status on File) Date Activated Date Inactivated Comments 08/31/2021 6:08 PM 09/02/2021 4:44 PM Care Teams Manufacturing Process Technician Relationship Specialty Start Date End Date Todd, Stephanie Anderson NP [address] [place] [address] PCP - General 5/4/21 Sherlyn Siddiqui, RN Registered Nurse Pain Management 05/18/17 Lashawn Moore MD [address] [place] [address] Referring Physician General Surgery 03/05/22
--- OUTSIDE RECORDS SUMMARY | 2025-03-08 13:04 | XMS_ITS | Clinical Summary ---
Author Organization [facility] Address [address] [place] [address] Phone Care Team Providers Care Histology Specialist Name Role Phone Philomena Howard Primary Care Provider [phone] Allergies Active Allergy Reactions Criticality Noted Date [...] exam. Electronically signed by: Sandra caballero/penrad:08/09/2023 16:25:49 Kennel Manager(s): CAROLINA AngelaR)(M), [facility] letter sent: Normal Exam Reading location: [facility] BI-RADS: 1 Negative Procedure Note Sandra Cormier [...] exam. Electronically signed by: Sandra caballero/penrad:08/09/2023 16:25:49 Kennel Manager(s): RT Julio César(R)(M), [facility] letter sent: Normal Exam Reading location: [facility] [place] BI-RADS: 1 Negative April Acharya V, CHERRY SORTER, ARMATURE WINDER IMG MAMMO ORDERABLES Final Result from Last 3 Months or Most Recently Relevant to Health Maintenance Insurance MEDICAID [place] Care Teams Histology Specialist Relationship Specialty Start Date End Date Philomena Howard PA [address] [address] PCP - General Adult Medicine 06/09/17
--- OUTSIDE RECORDS SUMMARY | 2025-03-08 13:04 | XMS_ITS | Clinical Summary ---
Author Organization [facility] Address [address] [place] [address] Care Team Providers Care Zipper Setter Lockstitch Name Role Phone Stephanie Brooks SHELDONSeleneGLOVE PRESSER Primary Care Provider [phone] Source Comments [facility],non-owned Affiliates and Associated Physician Practices is amultiple site organization consisting of ambulatory clinics and hospital sitesin [place], [place], [place] and [place]. This disclosure is being madepursuant to the Care Everywhere program and may not contain all information available regarding this patient. Last updated 18.[facility] Allergies Active Allergy Reactions Criticality Noted Date [...] daily as needed 2 Active Probiotic Product (TekLinks) capsuleIndicati ons:Bariatric surgery status Take 1 (one) [...] by mouth daily before breakfast 30 capsule 1 5 Active Active Problems Problem Noted Date Diagnosed Date Morbid obesity 03/09/2022 Encounters Date Type Department Care Team Description 01/22/2025 Orders Only [facility] [address] [place] [address] Pema Gallego, ELECTRODYNAMICIST-GLOVE PRESSER 01/22/[address] [facility] [address] [place] [address] Pema Gallego APRN-CNP Refill Request 01/18/2025 Refill [facility] [address] [place] [address] Pema Gallego APRN-CNP MEDICATION REFILL from Last 3 Months Family History Medical History Relation Name Comments [...] on file Legal Sex Female 6:17 AM SUPERVISOR OFFSET PLATE PREPARATION Gender Identity Not on file Sexual Orientation Not on file Last Filed Vital Signs Vital Sign Reading Time Taken Comments Blood Pressure 132/84 05/23/2024 2:00 PM SUPERVISOR OFFSET PLATE PREPARATION Pulse 71 05/23/2024 2:00 PM SUPERVISOR OFFSET PLATE PREPARATION Temperature 36.5 C (97.7 F) 05/23/2024 2:00 PM SUPERVISOR OFFSET PLATE PREPARATION Respiratory Rate 16 05/23/2024 2:00 PM SUPERVISOR OFFSET PLATE PREPARATION Oxygen Saturation 98% 05/23/2024 2:00 PM SUPERVISOR OFFSET PLATE PREPARATION Inhaled Oxygen Concentration - - Weight 98 kg (216 lb) 05/23/2024 2:00 PM SUPERVISOR OFFSET PLATE PREPARATION Height 164.6 cm (5' 4.8) 05/23/2024 2:00 PM SUPERVISOR OFFSET PLATE PREPARATION Body Mass Index 36.16 05/23/2024 2:00 PM SUPERVISOR OFFSET PLATE PREPARATION Plan of Treatment Upcoming Encounters Date Type Department Care Team (Late st Contact Info) Description 03/20/2025 1:30 PM SUPERVISOR OFFSET PLATE PREPARATION Clinical Support [facility] [address] [place] [address] 03/20/2025 2:00 PM SUPERVISOR OFFSET PLATE PREPARATION Office Visit [facility] [address] [place] [address] Pema Gallego, ELECTRODYNAMICIST-GLOVE PRESSER [address] [place] [address] Health Maintenance Due Date Last Done Comments [...] 3-dose SCDM series) 09/29/2006 COVID-19 VACCINE ( - season) 2025 INFLUENZA VACCINE (#1) 2025 MAMMOGRAM 08/12/2025 08/13/2023, 04/0 09/2023, 08/06/2023 LIPID TESTING 08/22/2026 08/22/2021 SCREENING [...] this topic Medical Devices Implanted Type Area Pediatric Medical Assistant Device Identifier Shelf Expiration Date Model / Serial / Lot Kit Tissue Clsr Duo Tssl 1 Prefl [facility] - [id number] Implanted:Qty : 1 on 03/09/2022 by Teresa, Lashawn Benitez MD at [facility] N/A: Stomach [employer] 08/31/2023 [id number] / [id number] / [id number] Procedures Procedure Name Priority Date/Time Associated Diagnosis [...] POINT OF CARE (11/05/2023 12:02 PM CDT) [facility] Glucose WB/POC 95 70 - 125 mg/dL 11/05/2023 12:02 PM CDT [facility] Specimen Type Cap Fingerstick 2023 12:02 PM CDT [facility] Blood BLOOD SPECIMEN / Unknown 11/05/2023 12:02 PM CDT 11/05/2023 12:02 PM CDT us Lashawn Moore MD LAB - POINT OF CARE SUGARPatrice CALIX Final Result [facility] [address] * (ABNORMAL) LIPID PROFILE (08/22/2021 2:25 PM CDT) [facility] Cholesterol 197 <200 mg/dL 08/22/2021 3:32 PM CDT [facility] Triglycerides 243(H) <150 mg/dL 08/22/2021 3:32 PM CDT [facility] HDL Cholesterol 46 >40 mg/dL 2 3:32 PM CDT [facility] Chol HDL Ratio 4.3 1.0 - 6.0 08/22/2021 3:32 PM CDT [facility] LDL Calculated 102 65 - 130 mg/dL 08/22/2021 3:32 PM T [facility] VLDL Calculated 49(H) <=30 mg/dL 2 3:32 PM T [facility] Blood BLOOD SPECIMEN / Unknown Lab Venipuncture / Unknown 08/22/2021 2:25 PM CDT 08/22/2021 3:01 PM CDT Narrative [facility] - 08/22/2021 3:32 PM CDT Lipid [...] LAB - CHEMISTRY ORDERABL ES Final Result [facility] [address] [place] [id number] * HEPATITIS C ANTIBODY (02/17/2021 4:20 PM CDT) [facility] Hepatitis C Antibody Non-react page Non-reac tive 02/17/2021 5:46 PM CDT [facility] Comment:Hepatitis C Antibody screen indicates [...] LAB - CHEMISTRY ORDERAB LES Final Result Performing Organization Address City/[facility]/ZIP Co de Phone Number [facility] [address] [place] [address], [facility] [phone] from Last 3 Months or Most Recently Relevant to Health Maintenance Insurance [facility] Care Address: [address] [phone] [place] [address] Advance Directives * Full Code (Latest Code Status on File) Date Activated Date Inactivated Comments 03/09/2022 11:08 AM 03/10/2022 4:35 PM Care Teams Zipper Setter Lockstitch Relationship Specialty Start Date End Date Stephanie Brooks APRN-CNP [address] [place] [phone] PCP - General Nurse Practitioner Family 07/31/21
--- OUTSIDE RECORDS SUMMARY | 2025-03-08 13:04 | XMS_ITS | Encounter Summary ---
Author Organization [facility] Healthcare Address [address] [place] [address] Care Team Providers Care Cafe Worker Name Role Phone Sherlyn Siddiqui RN Unavailable Unavailab Stephanie Feliciano NP Primary Care Provider Lashawn Moore MD Unavailable [phone] Encounter Details Date Type Department Care Team (Late st Contact Info) Description 02/08/2025 Results Follow-Up [facility] Emergency Department [address] [place] [address] Gómez Anaya MD [address] [place] [address] Urine culture Urine Social History Tobacco Use Types Packs/Day Years [...] on file Legal Sex Female 3:11 AM MANAGER PAYMENT Gender Identity Not on file Sexual Orientation Not on file documented as of this encounter Plan of Treatment Not on file documented as of this encounter Visit Diagnoses Not on filedocumented in this encounter Care Teams Cafe Worker Relationship Specialty Start Date End Date Stephanie Brooks NP [address] [place] [address] PCP - General 09/03/20 Sherlyn Siddiqui, DAVID Registered Nurse Pain Management 05/18/17 Lashanw Moore MD [address] [place] [address] Referring Physician General Surgery 03/05/22 documented as of this encounter
== END 2025-03-07 14:16 | disposition home or self-care (01) ==
PROVIDERS: Emergency Provider Nurse Practitioner; PCP Nurse Practitioner Family
DX: N39.0 Urinary tract infection, site not specified (principal)
CPT/HCPCS: 81003; 87077; 87086; 87186; 99213; G0463